=== PATIENT | male | born 1945 | race Caucasian/White ===

== ENCOUNTER 2017-11-06 19:36 | Emergency (ER) | payer OTHER ==
[2017-11-06] MEDS ORDERED: ONDANSETRON 4 MG/2 ML VIAL ONE (20:26)
[2017-11-06] MEDS ORDERED: MORPHINE 4 MG/ML SYR ONE (20:26)
[2017-11-06] MEDS ORDERED: NA CHLORIDE 0.9% 1,000 ML ONE (20:26)
[2017-11-06 20:36] LABS: Protime INR 1.05
[2017-11-06 20:42] LABS: Absolute Lymphocytes (CBC) 0.6 K/uL (0.7-4.9); Absolute Neutrophil 6.7 K/uL (1.8-8.0); Basophils % 0.2 % (0-1.3); Eosinophils % 1.9 % (0-4.4); Hematocrit 44.7 % (39.6-49.0); Lymphocytes % 7.5 % (15.3-44.8); MCH 31.5 pg (27.0-35.0); MCV 92.7 fL (80-100); MPV 8.9 fL (7.6-11.3); Monocytes % 12.3 % (3.3-12.3); RBC Red Blood Cell Count 4.82 M/uL (4.33-5.43)
--- NOTE | 2017-11-06 20:44 | RAD REPORT ---
EXAM DESCRIPTION: RAD - Chest Single View - 11/06/2017 8:33 pm CLINICAL HISTORY: Chest pain. COMPARISON: 06/25/2017 FINDINGS: Portable technique limits examination quality. Underinflated left lung is seen with small left pleural effusion. Prominent left suprahilar markings are noted. Previously noted large left lung mass appears significantly reduced in size. The right flora g is grossly clear. The heart is upper limit normal in size. No displaced fractures.
[2017-11-06 20:47] LABS: Potassium 4.3 mEq/L (3.6-5.0)
[2017-11-06 20:54] LABS: Albumin 3.9 g/dL (3.2-5.5); Bilirubin Direct 0.1 mg/dL (0-0.2); Bilirubin Total 0.8 mg/dL (0.3-1.2); Magnesium 1.8 mg/dL (1.8-2.5); Protein, Total 7.6 g/dL (6.0-8.3)
[2017-11-06 20:58] LABS: CKMB Creatine Kinase MB 1.8 ng/ml (0.3-4.0)
--- NOTE | 2017-11-06 21:46 | RAD REPORT ---
EXAM DESCRIPTION: CT - Chest For Pe Angio - 11/06/2017 9:33 pm CLINICAL HISTORY: Chest pain. History of lung carcinoma. COMPARISON: 06/24/2017 TECHNIQUE: CT angiogram of the pulmonary arteries was performed with MIP. All CT scans are performed using dose optimization technique as appropriate and may include automated exposure control or mA/KV adjustment according to patient size. FINDINGS: No evidence of pulmonary thromboembolism. No acute aortic finding demonstrated. There has been marked improvement in the large soft tissue mass in the region of the AP window since the comparative study. Little if any residual mass is present in the region. Ill-defined right upper lobe medial lung opacity emanating from the left suprahilar region persists, however is markedly dimi nished in size compared to the prior study. Post radiation changes are suspected in the left anterome dial upper lobe. Mild linear subsegmental atelectasis is seen in both posterior lung bases. The lungs are diffusely emphysematous. No significant pericardial or pleural fluid. No lytic or blastic bone lesion. IMPRESSION: No evidence of pulmonary thromboembolism. Marked improvement in left upper lobe neoplastic process the comparative study.
[2017-11-06 21:52] LABS: Platelet Estimate DECR; Urine White Blood Cell Casts OK
[2017-11-06 21:53] LABS: Anisocytosis 1+; Blood Morphology Comment NOTED (NOT SEEN)
--- NOTE | 2017-11-06 22:29 | ER ---
Nurse's Notes [facility] Name: Fred Mayorga Age: 72 yrs Sex: Male : 1945 Arrival Date: 11/06/2017 Time: 19:38 Bed 14 Private MD: Rome Solorio Diagnosis: Chest pain on breathing Presentation: 11/06 19:43 Presenting complaint: Patient states: Chest pain and SOB that started today. Patient aj had radiation [place] on Tuesday for lung cancer. Transition of care: patient was not received from another setting of care. Onset of symptoms was November 06, 2017. Initial Sepsis Screen: Does the patient meet any 2 criteria? No. Patient's initial sepsis screen is negative. Does the patient have a suspected source of infection? No. Patient's initial sepsis screen is negative. Care prior to arrival: None. 19:43 Method Of Arrival: Wheelchair aj 19:43 Acuity: ADITYA 3 aj Triage Assessment: 19:46 General: Appears in no apparent distress. comfortable, Behavior is calm, cooperative, aj appropriate for age. Pain: Complains of pain in chest. Neuro: Level of Consciousness is awake, alert, obeys commands, Oriented to person, place, time, situation, Appropriate for age. Cardiovascular: Reports chest pain. Respiratory: Airway is patent Respiratory effort is even, unlabored, Respiratory pattern is regular, symmetrical. Derm: Skin is intact, is healthy with good turgor, Skin is pink, warm \T\ dry. normal. Historical: - Allergies: 19:46 No Known Allergies; aj - Home Meds: 19:46 Tramadol Oral [Active]; unknown cholesterol med [Active]; aj - PMHx: 19:46 Lung Cancer; Hyperlipidemia; aj - PSHx: 19:46 None; aj - Immunization history:: Adult Immunizations up to date. - Social history:: Smoking status: Patient/guardian denies using tobacco, Patient/guardian denies using alcohol, street drugs, The patient lives with family. - Family history:: not pertinent. Screenin:27 Abuse screen: Denies threats or abuse. Denies injuries from another. Nutritional bs1 screening: No deficits noted. Tuberculosis screening: No symptoms or risk factors identified. Fall Risk None identified. Assessment: 20:15 General: Appears uncomfortable, Behavior is cooperative, anxious. Pain: Complains of bs1 pain in mid-sternal area and chest Pain does not radiate. Pain began gradually. Neuro: Level of Consciousness is awake, alert, obeys commands, Hard of hearing. Oriented to person, place, time, situation, Appropriate for age Nurse Orthopaedic are equal bilaterally. Cardiovascular: Reports chest pain, nausea, shortness of breath, Denies lightheadedness, palpitations, Heart tones S1 S2 present Capillary refill < 3 seconds Patient's skin is warm and dry. Rhythm is regular. Respiratory: Reports shortness of breath at rest on exertion cough that is non-productive, Airway is patent Trachea midline Respiratory effort is even, unlabored, Respiratory pattern is regular, symmetrical, Breath sounds are clear bilaterally. GI: Abdomen is round umbilical hernia noted. GI: Bowel sounds present X 4 quads. Abd is non tender X 4 quads Reports nausea. : Reports incontinence. EENT: Throat is reddened Reports pain when swallowing. Derm: Skin is intact. Musculoskeletal: Circulation, motion, and sensation intact. Capillary refill is > 3 seconds, fingers. bilateral fingers/hands purple/discolored. Range of motion: intact in all extremities. 21:30 Reassessment: Patient appears in no apparent distress at this time. No changes from bs1 previously documented assessment. Patient and/or family updated on plan of care and expected duration. Pain level reassessed. 22:45 Reassessment: Patient appears in no apparent distress at this time. Patient and/or bs1 family updated on plan of care and expected duration. Pain level reassessed. Patient is alert, oriented x 3, equal unlabored respirations, skin warm/dry/pink. Patient states symptoms have improved. Vital Signs: 19:46 BP 139 / 75; Pulse 78; Resp 17; Temp 99.6; Pulse Ox 97% on R/A; Weight 115.67 kg; aj Height 5 ft. 8 in. (172.72 cm); Pain 10/10; 21:00 BP 146 / 69; Pulse 87; Resp 21; Pulse Ox 98% on 2 lpm NC; Pain 6/10; bs1 22:00 BP 146 / 84; Pulse 91; Resp 21; Pulse Ox 95% on 2 lpm NC; Pain 5/10; bs1 22:45 BP 145 / 80; Pulse 88; Resp 20; Temp 97.9(O); Pulse Ox 99% on R/A; Pain 3/10; bs1 19:46 Body Mass Index 38.77 (115.67 kg, 172.72 cm) aj ED Course: 19:38 Patient arrived in ED. al2 19:39 Rome Solorio DO is Private Physician. al2 19:44 Triage completed. aj 19:46 Arm band placed on left wrist. Patient placed in an exam room. aj 19:47 Opal Aguirre MD is Attending Physician. ma2 20:06 Monik Peralta, LIZ is Primary Nurse. bs1 20:15 Inserted saline lock: 20 gauge in right antecubital area, using aseptic technique. bs1 20:15 Oxygen administration via nasal cannula \T\ 2L/min. bs1 20:24 Radiology exam delayed due to lab results not completed at this time. (BUN/Creatinine). vr 20:32 X-ray completed. Portable x-ray completed in exam room. Patient tolerated procedure la2 well. 20:33 XRAY Chest (1 view) In Process Unspecified. EDMS 20:45 Patient has correct armband on for positive identification. Placed in gown. Bed in low bs1 position. Call light in reach. Side rails up X 1. Adult w/ patient. clinical research monitor on. Pulse ox on. NIBP on. Warm blanket given. 21:27 No provider procedures requiring assistance completed. bs1 21:32 CT completed. Patient moved to CT via stretcher. Patient moved back from CT. vr 21:33 CT Chest For PE Angio In Process Unspecified. EDMS 23:01 IV discontinued, bleeding controlled, No redness/swelling at site. Pressure dressing bs1 applied. Administered Medications: 20:30 Drug: Zofran 4 mg Route: IVP; Site: right antecubital; bs1 21:31 Follow up: Response: No adverse reaction bs1 20:33 Drug: NS 0.9% 1000 ml Route: IV; Rate: 1 bolus; Site: right antecubital; bs1 21:30 Follow up: IV Status: Completed infusion bs1 20:33 Drug: morphine 4 mg Route: IVP; Site: right antecubital; bs1 21:30 Follow up: Response: No adverse reaction bs1 Outcome: 22:28 Discharge ordered by . ma2 22:59 Discharged to home via wheelchair, with family. bs1 22:59 Condition: stable 22:59 Discharge instructions given to patient, Instructed on discharge instructions, follow up and referral plans. Demonstrated understanding of instructions, follow-up care, Prescriptions given X patient refused tylenol #3 w/ codeine. 23:01 Patient left the ED. bs1 Signatures: Dispatcher [employer] EDGauri Humphrey RN RN aj Davis, Victoria vr Ardoin, Leslie la2 Salazar, Brittany, RN RN bs1 Nessa Bolanos Mohammad, MD MD ny2
--- NOTE | 2017-11-06 22:29 | EDPHYS ---
Physician Documentation [facility] Name: Fred Mayorga Age: 72 yrs Sex: Male : 1945 Arrival Date: 11/06/2017 Time: 19:38 Bed 14 Private MD: Osmin [facility] ED Physician Opal Aguirre HPI: 11/06 20:15 This 72 yrs old Male presents to ER via Wheelchair with complaints of Chest ma2 Pain. 20:15 The patient or guardian reports chest pain that is located primarily in the substernal ma2 area, mid-sternal area. Onset: gradually, 2 day(s) ago. The pain does not radiate. Associated signs and symptoms: Pertinent positives: dizziness, nausea, shortness of breath, Pertinent negatives: cough, lower extremity swelling, near syncope. The chest pain is described as a pressure. Duration: The patient or guardian reports multiple episodes. Severity of pain: At its worst the pain was severe in the emergency department the pain is unchanged. The patient has not experienced similar symptoms in the past. Historical: - Allergies: 19:46 No Known Allergies; aj - Home Meds: 19:46 Tramadol Oral [Active]; unknown cholesterol med [Active]; aj - PMHx: 19:46 Lung Cancer; Hyperlipidemia; aj - PSHx: 19:46 None; aj - Immunization history:: Adult Immunizations up to date. - Social history:: Smoking status: Patient/guardian denies using tobacco, Patient/guardian denies using alcohol, street drugs, The patient lives with family. - Family history:: not pertinent. ROS: 20:15 Constitutional: Negative for fever, chills, and weight loss. ma2 20:15 Cardiovascular: Positive for chest pain, Negative for edema, orthopnea. 20:15 All other systems are negative. Exam: 20:15 Constitutional: This is a well developed, well nourished patient who is awake, alert, ma2 and in no acute distress. Head/Face: Normocephalic, atraumatic. Chest/axilla: Normal chest wall appearance and motion. Nontender with no deformity. No lesions are appreciated. Cardiovascular: Regular rate and rhythm with a normal S1 and S2. No gallops, murmurs, or rubs. Normal PMI, no JVD. No pulse deficits. Respiratory: Lungs have equal breath sounds bilaterally, clear to auscultation and percussion. No rales, rhonchi or wheezes noted. No increased work of breathing, no retractions or nasal flaring. Abdomen/GI: Soft, non-tender, with normal bowel sounds. No distension or tympany. No guarding or rebound. No evidence of tenderness throughout. MS/ Extremity: Pulses equal, no cyanosis. Neurovascular intact. Full, normal range of motion. Psych: Awake, alert, with orientation to person, place and time. Behavior, mood, and affect are within normal limits. Vital Signs: 19:46 BP 139 / 75; Pulse 78; Resp 17; Temp 99.6; Pulse Ox 97% on R/A; Weight 115.67 kg; aj Height 5 ft. 8 in. (172.72 cm); Pain 10/10; 21:00 BP 146 / 69; Pulse 87; Resp 21; Pulse Ox 98% on 2 lpm NC; Pain 6/10; bs1 22:00 BP 146 / 84; Pulse 91; Resp 21; Pulse Ox 95% on 2 lpm NC; Pain 5/10; bs1 22:45 BP 145 / 80; Pulse 88; Resp 20; Temp 97.9(O); Pulse Ox 99% on R/A; Pain 3/10; bs1 19:46 Body Mass Index 38.77 (115.67 kg, 172.72 cm) aj MDM: 19:47 Patient medically screened. ma2 20:15 Differential diagnosis: pulmonary embolus. ma2 20:15 Differential diagnosis: gastroesophageal reflux disease (GERD), pericarditis, pleurisy, ma2 pneumonia, pneumothorax, thoracic aortic disection, hx of lung ca has getting radiation therapy last session was 2 days ago here with 2 days of constant gradual pain that is worse with deep breath never had cardiac problems had normal stress test few years ago. 22:26 HEART Score: History: Slightly Suspicious (0), ECG: Normal (0), Age: Risk Factors: No ma2 Risk Factors Known (0), Troponin: < or = 1 x Normal Limit (0), Total Score =. The patient was not given aspirin in the Emergency Department. The patient's pulmonary embolism risk score was calculated as follows: No Risks (0 Pts) alternative diagnosis is less likely (3 Pts) malignancy. Data reviewed: vital signs, nurses notes, EKG, radiologic studies, CT scan. Counseling: I had a detailed discussion with the patient and/or guardian regarding: the historical points, exam findings, and any diagnostic results supporting the discharge/admit diagnosis, the presence of at least one elevated blood pressure reading (>120/80) during this emergency department visit, the need for outpatient follow up. ED course: pain improved unlikely ACS he will f/u with pcp tomorrow, . 11/06 19:48 Order name: Basic Metabolic Panel; Complete Time: 21:27 ma2 11/06 19:48 Order name: BNP; Complete Time: 21:27 ma2 11/06 19:48 Order name: CBC with Diff; Complete Time: 22:26 ma2 11/06 19:48 Order name: Ckmb; Complete Time: 21:27 ma2 11/06 19:48 Order name: CPK; Complete Time: 21:27 ma2 11/06 19:48 Order name: LFT's; Complete Time: 21:27 ma2 11/06 19:48 Order name: Magnesium; Complete Time: 21:27 ma2 11/06 19:48 Order name: PT-INR; Complete Time: 21:27 ma2 11/06 19:48 Order name: Ptt, Activated; Complete Time: 21:27 ma2 11/06 19:48 Order name: Troponin (emerg Dept Use Only); Complete Time: 21:28 ma2 11/06 19:48 Order name: XRAY Chest (1 view); Complete Time: 21:28 ma2 11/06 20:15 Order name: CT Chest For PE Angio; Complete Time: 22: ma2 11/06 21:52 Order name: CBC Smear Scan; Complete Time: 22:26 EDOR 11/06 22:02 Order name: Urine Dipstick--Ancillary (enter results) em1 11/06 19:48 Order name: EKG; Complete Time: 19:49 ma2 11/06 19:48 Order name: Cardiac monitoring; Complete Time: 20:35 ma2 11/06 19:48 Order name: EKG - Nurse/Tech; Complete Time: 20:35 ma2 11/06 19:48 Order name: IV Saline Lock; Complete Time: 20:35 ma2 11/06 19:48 Order name: Labs collected and sent; Complete Time: 20:36 sd2 11/06 19:48 Order name: O2 Per Protocol; Complete Time: 20:36 ma2 11/06 19:48 Order name: O2 Sat Monitoring; Complete Time: 20:36 sd2 11/06 19:48 Order name: Urine Dipstick-Ancillary (obtain specimen); Complete Time: 21:59 ma2 Administered Medications: 20:30 Drug: Zofran 4 mg Route: IVP; Site: right antecubital; bs1 21:31 Follow up: Response: No adverse reaction bs1 20:33 Drug: NS 0.9% 1000 ml Route: IV; Rate: 1 bolus; Site: right antecubital; bs1 21:30 Follow up: IV Status: Completed infusion bs1 20:33 Drug: morphine 4 mg Route: IVP; Site: right antecubital; bs1 21:30 Follow up: Response: No adverse reaction bs1 Disposition: 11/06/17 22:28 Discharged to Home. Impression: Chest pain on breathing. - Condition is Stable. - Discharge Instructions: Nonspecific Chest Pain. - Prescriptions for Tylenol- Codeine #3 300-30 mg Oral Tablet - take 2 tablet by ORAL route every 6 hours As needed; 30 tablet. - Medication Reconciliation Form, Thank You Letter, Antibiotic Education, Prescription Opioid Use form. - Follow up: Private Physician; When: Tomorrow; Reason: Continuance of care. - Problem is new. - Symptoms have improved. Signatures: Dispatcher [employer] Gauri Johnson RN RN aj Salazar, Brittany, RN RN bs1 Opal Aguirre MD MD ma2 Corrections: (The following items were deleted from the chart) 23:01 22:28 11/06/2017 22:28 Discharged to Home. Impression: Chest pain on breathing. bs1 Condition is Stable. Forms are Medication Reconciliation Form, Thank You Letter, Antibiotic Education, Prescription Opioid Use. Follow up: Private Physician; When: Tomorrow; Reason: Continuance of care. Problem is new. Symptoms have improved. ma2
[2017-11-06 22:34] LABS: Urine Blood NEGATIVE (NEG); Urine Glucose NEGATIVE (NEG); Urine Protein NEGATIVE (NEG); Urine Specific Gravity 1.015 (1.005-1.030); Urine pH 5.5 (5.0-7.0)
[2017-11-06 23:29] VITALS: BP 145/80; TEMP 97.9; O2SAT 99
--- NOTE | 2017-11-07 06:54 | EKG ---
Test Date: 2017-11-06 Test Time: 19:57:37 Blintze Roller: NATHALIE MEASUREMENT RESULTS: Intervals: Rate: 78 IA: 124 QRSD: 86 QT: 360 QTc: 410 [place]: P: 92 IA: 124 QRS: -4 T: 36 INTERPRETIVE STATEMENTS: Normal sinus rhythm Normal ECG Compared to ECG 06/24/2017 18:57:24 No significant changes Electronically Signed On 11-07-17 06:53:41 CDT by Juan Luis Garcia
== END 2017-11-06 23:01 | disposition home or self-care (01) ==
LOC: ER 19:36
DX: R07.1 Chest pain on breathing (principal); E78.5 Hyperlipidemia, unspecified; Z85.118 Personal history of other malignant neoplasm of bronchus and lung
CPT/HCPCS: 36415; 71045; 71275; 80048; 80076; 81003; 82550; 82553; 83735; 83880; 84484; 85025; 85610; 85730; 93005; J2405; J7030; Q9967; 96361; 96374; 96375; 99285

== ENCOUNTER 2017-11-10 21:09 | Emergency (ER) | payer OTHER ==
[2017-11-10] MEDS ORDERED: LIDOCAINE 100 MG/5 ML SYRINGE IV ONE (22:08)
[2017-11-10] MEDS ORDERED: LIDOCAINE 2% MPF 5 ML VIAL ONE (22:10)
--- NOTE | 2017-11-10 23:17 | ER ---
Nurse's Notes [facility] Name: Fred Mayorga Age: 72 yrs Sex: Male : 1945 Arrival Date: 11/10/2017 Time: 21:13 Bed 23 Private MD: Diagnosis: Left Infranasal Laceration Presentation: 11/10 21:19 Presenting complaint: Patient states: Reports being hit directly below left nostril 1 aj hour [employer] by flying debris when using a table saw. Small laceration noted in triage, under left nostril. Transition of care: patient was not received from another setting of care. Complicating Factors: There are no complicating factors for this patient. Onset of symptoms was November 10, 2017. Initial Sepsis Screen: Does the patient meet any 2 criteria? No. Patient's initial sepsis screen is negative. Does the patient have a suspected source of infection? No. Patient's initial sepsis screen is negative. Care prior to arrival: None. 21:19 Method Of Arrival: Ambulatory aj 21:19 Acuity: ADITYA 4 aj Triage Assessment: 21:20 General: Appears in no apparent distress. comfortable, Behavior is calm, cooperative, aj appropriate for age. Pain: Denies pain. Neuro: Level of Consciousness is awake, alert, obeys commands, Oriented to person, place, time, situation, Appropriate for age. Respiratory: Airway is patent Respiratory effort is even, unlabored, Respiratory pattern is regular, symmetrical. Derm: Skin is intact, is healthy with good turgor, Skin is pink, warm \T\ dry. normal. Injury Description: Laceration sustained to left nostril. Historical: - Allergies: 21:20 No Known Allergies; aj - Home Meds: 21:20 Tramadol Oral [Active]; Unknown cholesterol med [Active]; aj - PMHx: 21:20 Hyperlipidemia; Lung Cancer; aj - PSHx: 21:20 None; aj - Immunization history:: Last tetanus immunization: unknown. - Social history:: Smoking status: Patient/guardian denies using tobacco. Screenin:00 Abuse screen: Denies threats or abuse. Denies injuries from another. Nutritional kr2 screening: No deficits noted. Tuberculosis screening: No symptoms or risk factors identified. Fall Risk Gait- Impaired (20 pts.). Assessment: 22:30 General: Appears in no apparent distress. comfortable, well groomed, well developed, kr2 well nourished, Behavior is calm, cooperative. Pain: Complains of pain in left nostril Pain does not radiate. Pain currently is 2 out of 10 on a pain scale. Quality of pain is described as burning, tender, Pain began suddenly, Is continuous. Neuro: Level of Consciousness is awake, alert, obeys commands, Oriented to person, place, time, situation. Cardiovascular: Capillary refill < 3 seconds in bilateral fingers Patient's skin is warm and dry. Respiratory: Airway is patent Respiratory effort is even, unlabored, Respiratory pattern is regular, symmetrical. EENT: Oral mucosa is moist. Musculoskeletal: Circulation, motion, and sensation intact. Range of motion: intact in all extremities. Injury Description: Laceration sustained to left infranasal is clean, 0.5 to 2.5 cm long, is bleeding a small amount. 22:45 Reassessment: Patient appears in no apparent distress at this time. Patient and/or kr2 family updated on plan of care and expected duration. Pain level reassessed. Patient is alert, oriented x 3, equal unlabored respirations, skin warm/dry/pink. Area around laceration shaved with surgical clippers. Laceration cleansed with chlorhexidine and irrigated with saline. Patient tolerated well. 23:35 Reassessment: Patient appears in no apparent distress at this time. Patient and/or kr2 family updated on plan of care and expected duration. Pain level reassessed. Patient is alert, oriented x 3, equal unlabored respirations, skin warm/dry/pink. Cleansed laceration with NS and dried. Sutures in place. Patient denies pain at this time. Vital Signs: 21:20 BP 138 / 78; Pulse 94; Resp 16; Temp 98.6; Pulse Ox 95% on R/A; Weight 115.67 kg; aj Height 5 ft. 8 in. (172.72 cm); Pain 0/10; 22:30 BP 136 / 78; Pulse 90; Resp 17; Pulse Ox 100% on R/A; kr2 21:20 Body Mass Index 38.77 (115.67 kg, 172.72 cm) aj ED Course: 21:13 Patient arrived in ED. al2 21:20 Triage completed. aj 21:20 Arm band placed on left wrist. Patient placed in an exam room. aj 21:23 Alisia Caceres, RN is Primary Nurse. kr2 21:42 Michael Rodriguez PA is PHCP. van 21:42 Fredrick Melendrez MD is Attending Physician. cp 22:00 Patient has correct armband on for positive identification. Bed in low position. Call kr2 light in reach. Side rails up X2. Adult w/ patient. Pulse ox on. NIBP on. Door closed. Warm blanket given. Head of bed elevated. 23:30 No provider procedures requiring assistance completed. Patient did not have IV access kr2 during this emergency room visit. Administered Medications: No medications were administered Outcome: 23:17 Discharge ordered by MD. cp 23:30 Discharged to home ambulatory, with family. kr2 23:30 Condition: good 23:30 Discharge instructions given to patient, family, Instructed on discharge instructions, follow up and referral plans. wound care, Demonstrated understanding of instructions, follow-up care, wound care. 23:55 Patient left the ED. kr2 Signatures: Gauri Benavidez RN RN aj Page, Corey, PA PA cp Reaves, Karey, LIZ RN kr2 Nessa Bolanos Corrections: (The following items were deleted from the chart) 11/11 00:09 05 23:00 Reassessment: Patient appears in no apparent distress at this time. Patient kr2 and/or family updated on plan of care and expected duration. Pain level reassessed. Patient is alert, oriented x 3, equal unlabored respirations, skin warm/dry/pink. Area around laceration shaved with surgical clippers. Laceration cleansed with chlorhexidine and irrigated with saline. Patient tolerated well kr2
--- NOTE | 2017-11-10 23:17 | EDPHYS ---
Physician Documentation [facility] Name: Fred Mayorga Age: 72 yrs Sex: Male : 1945 Arrival Date: 11/10/2017 Time: 21:13 Bed 23 Private MD: ED Physician Fredrick Melendrez HPI: 11/10 21:50 This 72 yrs old Male presents to ER via Ambulatory with complaints of cp Laceration To Scalp/Face. 21:50 The patient has a laceration related to: doing crafts, occurred at home, and there are cp no complicating factors. The laceration(s) is(are) located on the left intranasal area of face. Onset: The symptoms/episode began/occurred just prior to arrival. 21:50 Associated signs and symptoms: Pertinent negatives: heavy bleeding, loss of cp consciousness, numbness distal to injury, suspected foreign body. Patient reports he was performing woodwork when piece of wood accidently struck face. No reported LOC. Historical: - Allergies: 21:20 No Known Allergies; - Home Meds: 21:20 Tramadol Oral [Active]; Unknown cholesterol med [Active]; aj - PMHx: 21:20 Hyperlipidemia; Lung Cancer; aj - PSHx: 21:20 None; aj - Immunization history:: Last tetanus immunization: unknown. - Social history:: Smoking status: Patient/guardian denies using tobacco. ROS: 22:00 Constitutional: Negative for fever. cp 22:00 Skin: Positive for laceration(s), of the left infranasal area, Negative for cellulitis. cp 22:00 Neuro: Negative for headache, loss of consciousness. 22:00 All other systems are negative. Exam: 22:05 Constitutional: The patient appears in no acute distress, alert, awake, cp non-diaphoretic, non-toxic, well developed, well nourished. 22:05 Head/face: Noted is a laceration(s), that is deep, that is linear, 2 cm(s), of the cp left infranasal area of face, Sinus tenderness, is not appreciated. 22:05 Eyes: Periorbital structures: appear normal, Conjunctiva: normal, no exudate, no injection, Lids and lashes: appear normal, bilaterally. 22:05 ENT: External ear(s): are unremarkable, Ear canal(s): are normal, clear, TM's: dullness, bilaterally, Mouth: Lips: moist, Oral mucosa: pink and intact, moist, Gums: normal with healthy appearance, Tongue: is normal, Posterior pharynx: Airway: no evidence of obstruction, patent, Uvula: midline, swelling, is not appreciated, erythema, is not appreciated, exudate, is not appreciated, Dental exam: no acute changes. 22:05 Neck: C-spine: vertebral tenderness, is not appreciated, crepitus, is not appreciated, ROM/movement: is normal, is supple, without pain, no range of motions limitations, no nuchal rigidity. 22:05 Chest/axilla: Inspection: normal, Palpation: is normal, no crepitus, no tenderness. 22:05 Cardiovascular: Rate: normal. 22:05 Respiratory: the patient does not display signs of respiratory distress, Respirations: normal, no use of accessory muscles, no retractions, no splinting, no tachypnea. 22:05 Abdomen/GI: Exam negative for discomfort, distension, guarding, Inspection: abdomen appears normal. 22:05 Neuro: Orientation: to person, place \T\ time. Mentation: lucid, able to follow commands, Cerebellar function: is grossly normal, Motor: moves all fours, strength is normal, Sensation: no obvious gross deficits. Vital Signs: 21:20 BP 138 / 78; Pulse 94; Resp 16; Temp 98.6; Pulse Ox 95% on R/A; Weight 115.67 kg; aj Height 5 ft. 8 in. (172.72 cm); Pain 0/10; 22:30 BP 136 / 78; Pulse 90; Resp 17; Pulse Ox 100% on R/A; kr2 21:20 Body Mass Index 38.77 (115.67 kg, 172.72 cm) aj Laceration: 23:07 Wound Repair of 2cm ( 0.8in ) subcutaneous laceration to left side nasal area and above cp lip. Linear shaped.. Distal neuro/vascular/tendon intact. Anesthesia: Local anesthetic administered with 4 mls of 2% lidocaine. Wound prep: Moderate cleansing by nurse. Skin closed with 4 6-0 Prolene using simple sutures and sterile technique. Dressed with Bacitracin. Patient tolerated well. MDM: 21:43 Patient medically screened. cp 23:15 Data reviewed: vital signs, nurses notes, and as a result, I will discharge patient. cp 23:15 Counseling: I had a detailed discussion with the patient and/or guardian regarding: the cp historical points, exam findings, and any diagnostic results supporting the discharge/admit diagnosis, the need for outpatient follow up, a family practitioner, to return to the emergency department if symptoms worsen or persist or if there are any questions or concerns that arise at home. Response to treatment: the patient's symptoms have markedly improved after treatment, and as a result, I will discharge patient. ED course: VSS. Patient reports tetanus immunization UTD and that he is currently taking antibiotic for tooth infection. 11/10 21:53 Order name: Prolene, Sutures; Complete Time: 23:05 cp 11/10 21:53 Order name: Dressing - Wound; Complete Time: 23:05 cp 11/10 21:53 Order name: Gloves, Sterile; Complete Time: 22:10 cp 11/10 21:53 Order name: Setup Suture Tray; Complete Time: 22:09 cp 11/10 21:53 Order name: Wound Care: please clean and irrigate wound; Complete Time: 22:06 cp 11/10 23:07 Order name: Wound dressing; Complete Time: 23:20 cp Administered Medications: No medications were administered Disposition: 11/11 01:00 Chart complete. cp 04:47 Co-signature as Attending Physician, Fredrick Melendrez MD. rn Disposition: 11/10/17 23:17 Discharged to Home. Impression: Left Infranasal Laceration. - Condition is Stable. - Discharge Instructions: Facial Laceration. - Medication Reconciliation Form, Thank You Letter, Antibiotic Education, Prescription Opioid Use form. - Follow up: Private Physician; When: 1 week; Reason: Staple/Suture removal. - Problem is new. - Symptoms have improved. Signatures: Gauri Benavidez RN RN Fredrick Kent MD MD rn Page, Corey, PA PA cp Reaves, Karey, RN RN kr2 Corrections: (The following items were deleted from the chart) 11/10 23:55 23:17 11/10/2017 23:17 Discharged to Home. Impression: Left Infranasal Laceration. kr2 Condition is Stable. Forms are Medication Reconciliation Form, Thank You Letter, Antibiotic Education, Prescription Opioid Use. Follow up: Private Physician; When: 1 week; Reason: Staple/Suture removal. Problem is new. Symptoms have improved. cp
[2017-11-10 23:59] VITALS: BP 138/78; TEMP 98.6; O2SAT 95
== END 2017-11-10 23:55 | disposition home or self-care (01) ==
LOC: ER 21:09
PROC: 0CQ0XZZ Repair Upper Lip, External Approach (ICD-10-PCS; principal; 2017-11-10)
PROC: 09QKXZZ Repair Nasal Mucosa and Soft Tissue, External Approach (ICD-10-PCS; 2017-11-10)
DX: S01.21XA Laceration without foreign body of nose, initial encounter (principal); W45.8XXA Other foreign body or object entering through skin, initial encounter; W29.8XXA Contact with other powered hand tools and household machinery, initial encounter; Y93.89 Activity, other specified; Y92.9 Unspecified place or not applicable
CPT/HCPCS: 99283

== ENCOUNTER 2018-12-05 16:49 | Emergency (ER) | payer OTHER ==
--- OUTSIDE RECORDS SUMMARY | 2018-12-05 16:51 | XMS REPORT ---
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
--- OUTSIDE RECORDS SUMMARY | 2018-12-05 16:51 | XMS REPORT ---
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 Problem Benign essential HTN I10 Active Problem Vitamin D deficiency E55.9 Active Problem Shortness of breath R06.02 Active Problem Hyperlipidemia, mixed E78.2 Active Problem Non-small cell lung cancer (NSCLC) C34.90 Active Problem Dyspnea R06.00 Active Problem Former smoker Z87.891 Active Assessment Adverse effect of antineoplastic T45.1X5D Active and immunosuppressive drugs, subsequent encounter Assessment Vitamin D deficiency E55.9 Active Assessment Benign essential HTN I10 Active Assessment Dyspnea R06.00 Active Assessment Hyperlipidemia, mixed E78.2 Active Assessment Former smoker Z87.891 Active Assessment 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 Medications Medication Code Code Instructions Start End Date Status Dosage System Date Lyrica [facility] 83922025240 100 MG Orally Active 1 capsule Twice a day Ventolin HFA [facility] 18639272807 90 MCG/ACT Active 2 puffs as Inhalation every needed 6 hrs Lisinopril [facility] 85832649229 10 MG Orally Active 1 tablet Once a day Norvasc [facility] 82645537834 10 MG Orally Active 1 tablet Once a day Symbicort [facility] 48484027903 80-4.5 MCG/ACT Active 2 puffs Inhalation Twice a day Simvastatin ND 57671995098 40 MG Orally Active 1 tablet Once a day in the evening Lyrica [facility] 95842825319 150 MG Orally January 17, Active 1 capsule twice a day 2018 Aspir-81 [facility] 17220625979 81 MG Orally Active 1 tablet Once a day Results No Known Results Summary Purpose eClinicalWorks Submission
--- OUTSIDE RECORDS SUMMARY | 2018-12-05 16:51 | XMS REPORT ---
:1945 Author Organization [employer] Care Team Providers Name Role Phone Chong Solorioh Provider Role Unavailable Allergies, Adverse Reactions, Alerts Substance Reaction Event Type N.K.D.A. 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 Problem Benign essential HTN I10 Active Problem Vitamin D deficiency E55.9 Active Problem Shortness of breath R06.02 Active Problem Hyperlipidemia, mixed E78.2 Active Problem Non-small cell lung cancer (NSCLC) C34.90 Active Problem Dyspnea R06.00 Active Problem Former smoker Z87.891 Active Assessment Adverse effect of antineoplastic T45.1X5D Active and immunosuppressive drugs, subsequent encounter Assessment Benign essential HTN I10 Active Assessment Hyperlipidemia, mixed E78.2 Active Assessment Former smoker Z87.891 Active Assessment 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 Assessment Vitamin D deficiency E55.9 Active Assessment Non-small cell lung cancer (NSCLC) C34.90 Active Medications Medication Code Code Instructions Start End Status Dosage System Date Date Lisinopril [facility] 99654681836 10 MG Orally Active 1 tablet Once a day Lyrica [facility] 45351855861 100 MG Orally Active 1 capsule Twice a day Ventolin HFA [facility] 27870261589 90 MCG/ACT Active 2 puffs as Inhalation needed every 6 hrs Norvasc [facility] 39041914424 10 MG Orally Active 1 tablet Once a day Simvastatin [facility] 94114901675 40 MG Orally Active 1 tablet Once a day in the evening Amitriptyline HCl ND 34405469534 10 MG Orally January 25, Active 1 tablet Once a day 2018 at bedtime Lyrica [facility] 84614643776 150 MG Orally Active 1 capsule twice a day Symbicort [facility] 67982039196 80-4.5 MCG/ACT Active 2 puffs Inhalation Twice a day [facility] 76792504579 81 MG Orally Active 1 tablet Once a day Results No Known Results Summary Purpose eClinicalWorks Submission
--- OUTSIDE RECORDS SUMMARY | 2018-12-05 16:51 | XMS REPORT ---
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
--- OUTSIDE RECORDS SUMMARY | 2018-12-05 16:51 | XMS REPORT ---
:1945 [facility] Address [address] [place] [address] [address] [place] [address] Care Team Providers Name Role Phone Unavailable Unavailable Unavailable Problems This patient has no known problems. Allergies, Adverse Reactions, Alerts This patient has no known allergies or adverse reactions. Medications This patient has no known medications.
--- OUTSIDE RECORDS SUMMARY | 2018-12-05 16:51 | XMS REPORT ---
:1945 Author Organization eClinicalWorks Care Team Providers Name Role Phone Solorio [facility] Provider Role Unavailable Allergies No Known Allergies [...]
--- OUTSIDE RECORDS SUMMARY | 2018-12-05 16:51 | XMS REPORT ---
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 Assessment Facial laceration, subsequent S01.81XD Active encounter Problem Benign essential HTN I10 Active Problem Vitamin D deficiency E55.9 Active Problem Shortness of breath R06.02 Active Problem Hyperlipidemia, mixed E78.2 Active Problem Non-small cell lung cancer (NSCLC) C34.90 Active Problem Dyspnea R06.00 Active Problem Former smoker Z87.891 Active Medications Medication Code Code Instructions Start End Status Dosage System Date Date Lyrica [facility] 95892403526 100 MG Orally November 02, Active 1 capsule Twice a day 2017 Ventolin HFA [facility] 55304980750 90 MCG/ACT Active 2 puffs as Inhalation every needed 6 hrs Aspir-81 [facility] 14894638770 81 MG Orally Active 1 tablet Once a day Lisinopril [facility] 92352563123 10 MG Orally Active 1 tablet Once a day Simvastatin [facility] 19098148676 40 MG Orally Active 1 tablet Once a day in the evening Symbicort [facility] 63064906795 80-4.5 MCG/ACT Active 2 puffs Inhalation Twice a day Lyrica [facility] [address]-03 100 MG Orally Active 1 capsule Twice a day Norvasc [facility] 41333913625 10 MG Orally Active 1 tablet Once a day Results No Known Results Summary Purpose eClinicalWorks Submission
--- OUTSIDE RECORDS SUMMARY | 2018-12-05 16:51 | XMS REPORT ---
:1945 Author Organization eClinicalWorks Care Team Providers Name Role Phone SolorioRome Provider Role Unavailable Allergies No Known Allergies [...] Problem Benign essential HTN I10 Active Medications No Known Medications Results No Known Results Summary Purpose eClinicalWorks Submission
--- OUTSIDE RECORDS SUMMARY | 2018-12-05 16:51 | XMS REPORT ---
:1945 Author Organization eClinicalWorks Care Team Providers Name Role Phone SolorioRome Provider Role Unavailable Allergies, Adverse Reactions, Alerts [...] Active Problem Benign essential HTN I10 Active Assessment Vitamin D deficiency E55.9 Active Assessment Benign essential HTN I10 Active Assessment Adverse effect of antineoplastic T45.1X5D Active and immunosuppressive drugs, subsequent encounter Assessment Former smoker Z87.891 Active Assessment Non-small cell lung cancer (NSCLC) C34.90 Active Assessment Dyspnea R06.00 Active Assessment Hyperlipidemia, mixed E78.2 Active Assessment Medicare annual wellness visit, Z00.00 Active subsequent Assessment 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 Assessment Prostate cancer C61 Active Medications Medication Code Code Instructions Start End Status Dosage System Date Date Lyrica [facility] 65475449866 150 MG Orally Inactive 1 capsule twice a day Symbicort [facility] 60364690258 80-4.5 MCG/ACT Jul 15, Active 2 puffs Inhalation 2019 Twice a day Amitriptyline ND 45168791849 10 MG Orally January 25, Active 1 tablet HCl Once a day 2017 at bedtime Aspir-81 [facility] 32251693076 81 MG Orally Active 1 tablet Once a day Lisinopril ND 53446339218 10 MG Orally Inactive 1 tablet Once a day Norvasc [facility] 60954975396 10 MG Orally Inactive 1 tablet Once a day Ventolin HFA ND 36481359441 90 MCG/ACT Active 2 puffs Inhalation as needed every 6 hrs Simvastatin ND 01315131602 40 MG Orally Active 1 tablet Once a day in the evening Results No Known Results Summary Purpose eClinicalWorks Submission
--- OUTSIDE RECORDS SUMMARY | 2018-12-05 16:51 | XMS REPORT ---
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 Problem Benign essential HTN I10 Active Problem Vitamin D deficiency E55.9 Active Problem Shortness of breath R06.02 Active Problem Hyperlipidemia, mixed E78.2 Active Problem Non-small cell lung cancer (NSCLC) C34.90 Active Problem Dyspnea R06.00 Active Problem Former smoker Z87.891 Active Medications Medication Code Code Instructions Start End Status Dosage System Date Date Lyrica [facility] 99625350905 150 MG Orally January 17, Inactive 1 capsule twice a day 2017 Amitriptyline [facility] 52434978629 10 MG Orally January 25, Active 1 tablet HCl Once a day 2017 at bedtime Results No Known Results Summary Purpose [employer] Submission
--- OUTSIDE RECORDS SUMMARY | 2018-12-05 16:52 | XMS REPORT ---
:1945 Author Organization eClinicalWorks Care Team Providers Name Role Phone [place] Solorio Provider Role Unavailable Allergies, Adverse Reactions, Alerts Substance Reaction Event Type N.K.D.A. 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 Assessment Ear pain, left H92.02 Active Assessment Bilateral impacted cerumen H61.23 Active Problem Hyperlipidemia, mixed E78.2 Active Problem Non-small cell lung cancer (NSCLC) C34.90 Active Problem Prostate cancer C61 Active Problem Vitamin D deficiency E55.9 Active Problem Dyspnea R06.00 Active Problem Shortness of breath R06.02 Active Problem Benign essential HTN I10 Active Medications Medication Code Code Instructions Start End Status Dosage System Date Date Amitriptyline ND 62100833835 10 MG Orally January 25, Active 1 tablet at HCl Once a day 2018 bedtime Aspir-81 ND 53983894110 81 MG Orally Active 1 tablet Once a day Ventolin HFA ND 81959558386 90 MCG/ACT Active 2 puffs as Inhalation needed every 6 hrs Symbicort ND 55682334887 80-4.5 MCG/ACT Jul 15, Active 2 puffs Inhalation 2020 Twice a day Albuterol ND 65661146714 (2.5 MG/3ML) Jul 21, Active 3 ml as Sulfate 0.083% 2018 needed Inhalation Three times a day Debrox ND 13994809424 6.5 % Otic Aug 03, Aug 09, Active 5 drops Twice a day 2018 2018 into affected ear Simvastatin ND 58669882805 40 MG Orally Active 1 tablet in Once a day the evening Results No Known Results Summary Purpose eClinicalWorks Submission
[2018-12-05] MEDS ORDERED: KETOROLAC 30 MG/ML INJ ONE (18:41)
[2018-12-05] MEDS ORDERED: HYDROCODONE/APAP 10/325 TAB ONE (18:42)
--- NOTE | 2018-12-05 18:43 | EDPHYS ---
Physician Documentation [facility] Name: Fred Mayorga Age: 73 yrs Sex: Male : 1945 Arrival Date: 12/05/2018 Time: 16:53 Bed Treatment Private MD: Rome Solorio ED Physician Shahid Hurley HPI: 12/05 18:36 This 73 yrs old Male presents to ER via Wheelchair with complaints of Back ps1 Pain. 18:36 patient has a hx of lung CA and prostate CA. Recent MRI/ PET scan within a month with ps1 no mets. Patient states that he was bending over to wipe his backside a week ago and felt a muscle spasm. He states that his pain has persisted since then. He states that his pain is localized to his lower back bilaterally. No urinary complaints, fever, chills, or saddle anesthesia. Pt ambulated in the ED. . Historical: - Allergies: 17:07 No Known Allergies; tw2 - Home Meds: 17:07 Unknown cholesterol med [Active]; acetaminophen-codeine 300-30 mg Oral tab 1 tab every tw2 4 hours [Active]; - PMHx: 17:07 Lung Cancer; Hyperlipidemia; tw2 17:07 prostate cancer; tw2 - PSHx: 17:07 None; tw2 - Immunization history:: Adult Immunizations. - Social history:: Smoking status: Patient/guardian denies using tobacco, the patient reports quitting approximately 20 years ago. - Ebola Screening: : Patient denies travel to an Ebola-affected area in the 21 days before illness onset. ROS: 18:36 Constitutional: Negative for fever, chills, and weight loss, Eyes: Negative for injury, ps1 pain, redness, and discharge, ENT: Negative for injury, pain, and discharge, Cardiovascular: Negative for chest pain, palpitations, and edema, Respiratory: Negative for shortness of breath, cough, wheezing, and pleuritic chest pain, Abdomen/GI: Negative for abdominal pain, nausea, vomiting, diarrhea, and constipation, MS/Extremity: Negative for injury and deformity, Skin: Negative for injury, rash, and discoloration, Neuro: Negative for headache, weakness, numbness, tingling, and seizure. 18:36 Back: Positive for decreased range of motion, pain with movement, of the left low back and right low back. Exam: 18:36 Constitutional: This is a well developed, well nourished patient who is awake, alert, ps1 and in no acute distress. Head/Face: Normocephalic, atraumatic. Eyes: Pupils equal round and reactive to light, extra-ocular motions intact. Lids and lashes normal. Conjunctiva and sclera are non-icteric and not injected. Chest/axilla: Normal chest wall appearance and motion. Nontender with no deformity. No lesions are appreciated. Cardiovascular: Regular rate and rhythm. No gallops, murmurs, or rubs. Normal PMI, no JVD. No pulse deficits. Respiratory: Lungs have equal breath sounds bilaterally, clear to auscultation and percussion. No rales, rhonchi or wheezes noted. No increased work of breathing, no retractions or nasal flaring. Abdomen/GI: Soft, non-tender, with normal bowel sounds. No distension or tympany. No guarding or rebound. No evidence of tenderness throughout. Skin: Warm, dry with normal turgor. Normal color with no rashes, no lesions, and no evidence of cellulitis. MS/ Extremity: Pulses equal, no cyanosis. Neurovascular intact. Full, normal range of motion. 18:36 Back: pain, that is moderate, ROM is decreased, normal spinal alignment noted, vertebral tenderness, is not appreciated, muscle spasm, is appreciated in the left low back, left mid back, right mid back and right low back. Vital Signs: 17:04 BP 150 / 86; Pulse 53; Resp 18; Temp 98(TE); Pulse Ox 94% on R/A; Weight 124.74 kg (R); tw2 Height 5 ft. 9 in. (175.26 cm); Pain 10/10; 19:04 BP 140 / 78; Pulse 55; Resp 18; Temp 98; Pulse Ox 100% on R/A; Pain 5/10; mg2 17:04 Body Mass Index 40.61 (124.74 kg, 175.26 cm) tw2 17:04 "20" tw2 MDM: 18:36 Data reviewed: vital signs, nurses notes, and as a result, I will discharge patient. ED ps1 course: patient has paraspinal spasm with recent MRI, PET scan which was negative. Offered evaluation with CT scan, and refused. I additionally offered osteopathic manipulation therapy which he refused and said he would go to a chiropractor. Offered him a pain pill and anti-inflammatory. Patient agreed and discharged patient to follow up with MD Stanley for further evaluation. . 18:43 Patient medically screened. ps1 Administered Medications: 18:32 Drug: TORadol 30 mg Route: IM; Site: right gluteus; mg2 19:05 Follow up: Response: No adverse reaction; Medication administered at discharge. mg2 18:49 Drug: [place] 10 mg-325 mg 1 tabs Route: PO; mg2 19:05 Follow up: Response: No adverse reaction; Medication administered at discharge. mg2 Disposition: 12/05/18 18:43 Discharged to Home. Impression: Lower back pain. - Condition is Stable. - Discharge Instructions: Back Pain, Adult. - Prescriptions for Anaprox DS 550 mg Oral Tablet - take 1 tablet by ORAL route every 12 hours As needed; 20 tablet. Robaxin 500 mg Oral Tablet - take 2 tablet by ORAL route every 6 hours As needed; 40 tablet. Medrol (Lenin) 4 mg Oral Tablets, Dose Pack - take 1 tablet by ORAL route as directed - follow package instructions; 1 packet. - Medication Reconciliation Form, Thank You Letter, Antibiotic Education, Prescription Opioid Use form. - Follow up: Roem Solorio DO; When: As needed; Reason: Recheck today's complaints, Continuance of care, Re-evaluation by your physician. Follow up: Emergency Department; When: As needed; Reason: Worsening of condition. - Problem is chronic. - Symptoms have worsened. Signatures: Nadia Ravi RN RN tw2 Shahid Hurley MD MD ps1 Swapnil Cooney RN RN mg2 Corrections: (The following items were deleted from the chart) 19:06 18:43 12/05/2018 18:43 Discharged to Home. Impression: Lower back pain. Condition is mg2 Stable. Forms are Medication Reconciliation Form, Thank You Letter, Antibiotic Education, Prescription Opioid Use. Follow up: Rome Solorio; When: As needed; Reason: Recheck today's complaints, Continuance of care, Re-evaluation by your physician. Follow up: Emergency Department; When: As needed; Reason: Worsening of condition. Problem is chronic. Symptoms have worsened. ps1
--- NOTE | 2018-12-05 18:43 | ER ---
Nurse's Notes [facility] Name: Fred Mayorga Age: 73 yrs Sex: Male : 1945 Arrival Date: 12/05/2018 Time: 16:53 Bed Treatment Private MD: Rome Gordon Diagnosis: Lower back pain Presentation: 12/05 17:03 Presenting complaint: Patient states: i think i pulled something in my back 3 or 4 tw[address] gordon was out of town, now today i have gotten worse, the pain this morning has got me where i can hardly move. Transition of care: patient was not received from another setting of care. Onset of symptoms was December 05, 2018. Risk Assessment: Do you want to hurt yourself or someone else? Patient reports no desire to harm self or others. Initial Sepsis Screen: Does the patient meet any 2 criteria? No. Patient's initial sepsis screen is negative. Does the patient have a suspected source of infection? No. Patient's initial sepsis screen is negative. Care prior to arrival: None. 17:03 Method Of Arrival: Wheelchair tw2 17:03 Acuity: ADITYA 3 tw2 17:07 Note "seems like i get relief when i lay flat". tw2 Triage Assessment: 17:05 General: Appears uncomfortable, obese, unkempt, Behavior is cooperative, appropriate tw2 for age, Smells of body odor and cigarette. Pain: Complains of pain in left low back. Musculoskeletal: Range of motion: limited in low back. Historical: - Allergies: 17:07 No Known Allergies; tw2 - Home Meds: 17:07 Unknown cholesterol med [Active]; acetaminophen-codeine 300-30 mg Oral tab 1 tab every tw2 4 hours [Active]; - PMHx: 17:07 Lung Cancer; Hyperlipidemia; tw2 17:07 prostate cancer; tw2 - PSHx: 17:07 None; tw2 - Immunization history:: Adult Immunizations. - Social history:: Smoking status: Patient/guardian denies using tobacco, the patient reports quitting approximately 20 years ago. - Ebola Screening: : Patient denies travel to an Ebola-affected area in the 21 days before illness onset. Screenin:21 Abuse screen: Denies threats or abuse. Denies injuries from another. Nutritional mg2 screening: No deficits noted. Tuberculosis screening: No symptoms or risk factors identified. Fall Risk Ambulatory Aid- None/Bed Rest/Nurse Assist (0 pts). Gait- Weak (10 pts.). Assessment: 17:22 General: Appears uncomfortable, Behavior is cooperative. Pain: Complains of pain in mg2 left low back Pain does not radiate. Pain currently is 8 out of 10 on a pain scale. Quality of pain is described as aching, Pain began gradually, 3 weeks ago Is intermittent. Neuro: Level of Consciousness is awake, alert, obeys commands, Oriented to person, place, time, situation. Cardiovascular: Capillary refill < 3 seconds Patient's skin is warm and dry. Respiratory: Airway is patent Respiratory effort is even, unlabored, Respiratory pattern is regular, symmetrical. GI: No signs and/or symptoms were reported involving the gastrointestinal system. : No signs and/or symptoms were reported regarding the genitourinary system. EENT: No signs and/or symptoms were reported regarding the EENT system. Derm: Skin is intact, is healthy with good turgor, Skin is pink, warm \\T\\ dry. normal. Musculoskeletal: Reports pain in left low back since 3 weeks ago and worst today. 19:04 Reassessment: Patient appears in no apparent distress at this time. Patient and/or mg2 family updated on plan of care and expected duration. Pain level reassessed. Patient is alert, oriented x 3, equal unlabored respirations, skin warm/dry/pink. Vital Signs: 17:04 BP 150 / 86; Pulse 53; Resp 18; Temp 98(TE); Pulse Ox 94% on R/A; Weight 124.74 kg (R); tw2 Height 5 ft. 9 in. (175.26 cm); Pain 10/10; 19:04 BP 140 / 78; Pulse 55; Resp 18; Temp 98; Pulse Ox 100% on R/A; Pain 5/10; mg2 17:04 Body Mass Index 40.61 (124.74 kg, 175.26 cm) tw2 17:04 "20" tw2 ED Course: 16:53 Patient arrived in ED. mr 16:53 Rome Gordon DO is Private Physician. mr 17:04 Triage completed. tw2 17:04 Arm band placed on. tw2 17:14 Swapnil Cooney, RN is Primary Nurse. mg2 17:23 Patient has correct armband on for positive identification. mg2 17:23 No provider procedures requiring assistance completed. mg2 18:08 Shahid Hurley MD is Attending Physician. ps1 18:42 Rome Gordon DO is Referral Physician. ps1 19:04 Patient did not have IV access during this emergency room visit. mg2 Administered Medications: 18:32 Drug: TORadol 30 mg Route: IM; Site: right gluteus; mg2 19:05 Follow up: Response: No adverse reaction; Medication administered at discharge. mg2 18:49 Drug: [place] 10 mg-325 mg 1 tabs Route: PO; mg2 19:05 Follow up: Response: No adverse reaction; Medication administered at discharge. mg2 Outcome: 18:43 Discharge ordered by . ps1 19:04 Discharged to home via wheelchair, with family. mg2 19:04 Condition: stable 19:04 Discharge instructions given to patient, family, Instructed on discharge instructions, follow up and referral plans. medication usage, Demonstrated understanding of instructions, follow-up care, medications, Prescriptions given X 3. 19:06 Patient left the ED. mg2 Signatures: Batsheva Gutierrez Nadia Ravi, RN RN tw2 Shahid Hurley MD MD ps1 Swapnil Cooney, LIZ RN mg2
[2018-12-05 20:02] VITALS: TEMP 98
[2018-12-05 20:03] VITALS: BP 140/78; O2SAT 100
== END 2018-12-05 19:06 | disposition home or self-care (01) ==
LOC: ER 16:49
DX: M54.5 Low back pain (principal); E78.5 Hyperlipidemia, unspecified; Z85.118 Personal history of other malignant neoplasm of bronchus and lung; Z85.46 Personal history of malignant neoplasm of prostate
CPT/HCPCS: 96372; 99283

== ENCOUNTER 2019-01-08 10:18 | Observation (INO) | payer OTHER ==
--- OUTSIDE RECORDS SUMMARY | 2019-01-08 10:27 | XMS REPORT ---
:1945 Author Organization eClinicalWorks Care Team Providers Name Role Phone Solorio [facility] Provider Role Unavailable Allergies No Known Allergies [...]
--- OUTSIDE RECORDS SUMMARY | 2019-01-08 10:27 | XMS REPORT ---
[...] End Status Dosage System Date Date Lisinopril [facility] 46693986628 10 MG Orally Active 1 tablet Once a day Lyrica [facility] 26219637142 100 MG Orally Active 1 capsule Twice a day Ventolin HFA [facility] 10258106673 90 MCG/ACT Active 2 puffs as Inhalation needed every [address] [facility] 14159348274 10 MG Orally Active 1 tablet Once a day Simvastatin [facility] 38178641976 40 MG Orally Active 1 tablet Once a day in the evening Amitriptyline HCl ND 31525488628 10 MG Orally January 25, Active 1 tablet Once a day 2018 at bedtime [address] [facility] 06286328506 150 MG Orally Active 1 capsule twice a day Symbicort [facility] 84139249501 80-4.5 MCG/ACT Active 2 puffs Inhalation Twice a day [facility] 02294284511 81 MG Orally Active 1 tablet Once a day Results No Known Results Summary Purpose eClinicalWorks Submission
--- OUTSIDE RECORDS SUMMARY | 2019-01-08 10:27 | XMS REPORT ---
:1945 [facility] Address [address] [place] [address] [address] [place] [address] Care Team Providers Name Role Phone Unavailable Unavailable Unavailable Problems This patient has no known problems. Allergies, Adverse Reactions, Alerts This patient has no known allergies or adverse reactions. Medications This patient has no known medications.
--- OUTSIDE RECORDS SUMMARY | 2019-01-08 10:27 | XMS REPORT ---
[...] End Date Status Dosage System Date Lyrica [facility] 47391027014 100 MG Orally Active 1 capsule Twice a day Ventolin HFA [facility] 01941359022 90 MCG/ACT Active 2 puffs as Inhalation every needed 6 hrs Lisinopril [facility] 39070932927 10 MG Orally Active 1 tablet Once a day Norvasc [facility] 12307500046 10 MG Orally Active 1 tablet Once a day Symbicort [facility] 19763627242 80-4.5 MCG/ACT Active 2 puffs Inhalation Twice a day Simvastatin ND 58792224548 40 MG Orally Active 1 tablet Once a day in the evening Lyrica [facility] 55588355900 150 MG Orally January 17, Active 1 capsule twice a day 2018 Aspir-81 [facility] 16896216698 81 MG Orally Active 1 tablet Once a day Results No Known Results Summary Purpose eClinicalWorks Submission
--- OUTSIDE RECORDS SUMMARY | 2019-01-08 10:27 | XMS REPORT ---
[...] End Status Dosage System Date Date Lyrica [facility] 56840060382 150 MG Orally January 17, Inactive 1 capsule twice a day [address] [facility] 10068377025 10 MG Orally January 25, Active 1 tablet HCl Once a day 2017 at bedtime Results No Known Results Summary Purpose [facility] Submission
--- OUTSIDE RECORDS SUMMARY | 2019-01-08 10:28 | XMS REPORT ---
:1945 Author Organization eClinicalWorks Care Team Providers Name Role Phone Osmin Rome Provider Role Unavailable Allergies, Adverse Reactions, Alerts Substance Reaction Event Type N.K.D.A. 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 Problem Dyspnea R06.00 Active Problem Former smoker Z87.891 Active Problem Prostate cancer C61 Active Problem Non-small cell lung cancer (NSCLC) C34.90 Active Problem Overactive bladder N32.81 Active Problem Benign essential HTN I10 Active Problem Vitamin D deficiency E55.9 Active Problem Hyperlipidemia, mixed E78.2 Active Problem Shortness of breath R06.02 Active Assessment Vitamin D deficiency E55.9 Active Assessment Adverse effect of antineoplastic T45.1X5D Active and immunosuppressive drugs, subsequent encounter Assessment Overactive bladder N32.81 Active Assessment 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 Assessment Non-small cell lung cancer (NSCLC) C34.90 Active Assessment Hyperlipidemia, mixed E78.2 Active Assessment Prostate cancer C61 Active Assessment Benign essential HTN I10 Active Medications Medication Code Code Instructions Start End Status Dosage System Date Date Simvastatin ND 79038465465 40 MG Orally Active 1 tablet Once a day in the evening Ventolin HFA ND 04145178302 90 MCG/ACT Active 2 puffs as Inhalation needed every 6 hrs Amitriptyline HCl ND 54712657248 10 MG Orally January 25, Active 1 tablet Once a day 2017 at bedtime Oxybutynin ND 48040784661 5 MG Oral Active not Chloride ER defined - ND 00492934635 81 MG Orally Active 1 tablet Once a day Albuterol Sulfate ND 03516544152 (2.5 MG/3ML) Jul 21, Active 3 ml as 0.083% 2019 needed Inhalation Three times a day Symbicort ND 94336396111 80-4.5 MCG/ACT Jul 15, Active 2 puffs Inhalation 2020 Twice a day Results No Known Results Summary Purpose eClinicalWorks Submission
--- OUTSIDE RECORDS SUMMARY | 2019-01-08 10:28 | XMS REPORT ---
[...] Status Dosage System Date Date Amitriptyline ND 49554763666 10 MG Orally January 25, Active 1 tablet at HCl Once a day 2018 bedtime Aspir-81 ND 77951164370 81 MG Orally Active 1 tablet Once a day Ventolin HFA ND 84892774691 90 MCG/ACT Active 2 puffs as Inhalation needed every 6 hrs Symbicort ND 64089227994 80-4.5 MCG/ACT Jul 15, Active 2 puffs Inhalation 2020 Twice a day Albuterol ND 56733045939 (2.5 MG/3ML) Jul 21, Active 3 ml as Sulfate 0.083% 2018 needed Inhalation Three times a day Debrox ND 53078487448 6.5 % Otic Aug 03, Aug 09, Active 5 drops Twice a day 2018 2018 into affected ear Simvastatin ND 79874973015 40 MG Orally Active 1 tablet in Once a day the evening Results No Known Results Summary Purpose eClinicalWorks Submission
--- OUTSIDE RECORDS SUMMARY | 2019-01-08 10:28 | XMS REPORT ---
[...] End Date Status Dosage System Date Albuterol [facility] 20465828268 (2.5 MG/3ML) Jul 21, Active 3 ml as Sulfate 0.083% 2019 needed Inhalation Three times a day Results No Known Results Summary Purpose eClinicalWorks Submission
--- OUTSIDE RECORDS SUMMARY | 2019-01-08 10:28 | XMS REPORT ---
[...] End Status Dosage System Date Date Lyrica [facility] 45041624098 150 MG Orally Inactive 1 capsule twice a day Symbicort [facility] 63016183202 80-4.5 MCG/ACT Jul 15, Active 2 puffs Inhalation 2019 Twice a day Amitriptyline ND 69583735856 10 MG Orally January 25, Active 1 tablet HCl Once a day 2017 at bedtime Aspir-81 [facility] 69596776387 81 MG Orally Active 1 tablet Once a day Lisinopril ND 71747437408 10 MG Orally Inactive 1 tablet Once a day Norvasc [facility] 08593371456 10 MG Orally Inactive 1 tablet Once a day Ventolin HFA ND 31923274764 90 MCG/ACT Active 2 puffs Inhalation as needed every 6 hrs Simvastatin ND 82944439973 40 MG Orally Active 1 tablet Once a day in the evening Results No Known Results Summary Purpose eClinicalWorks Submission
--- OUTSIDE RECORDS SUMMARY | 2019-01-08 10:28 | XMS REPORT ---
[...] Active Problem Shortness of breath R06.02 Active Medications No Known Medications Results No Known Results Summary Purpose [employer] Submission
--- OUTSIDE RECORDS SUMMARY | 2019-01-08 10:28 | XMS REPORT ---
[...] Medications Results No Known Results Summary Purpose [employer] Data Submission
[2019-01-08] MEDS ORDERED: METHYLPREDNISOLONE 125 MG INJ ONE (10:54)
[2019-01-08] MEDS ORDERED: IPRATROPIUM BROM 0.5MG/2.5ML ONE (10:54)
[2019-01-08] MEDS ORDERED: LEVALBUTEROL 1.25 MG/3 ML NEB ONE (10:54)
[2019-01-08] MEDS ORDERED: ASPIRIN 81 MG CHEWABLE TABLET ONE (10:58)
[2019-01-08 11:21] LABS: Absolute Lymphocytes (CBC) 0.9 K/uL (0.7-4.9); Basophils % 0.3 % (0-1.3); Eosinophils % 0.8 % (0-4.4); Hematocrit 50.4 % (39.6-49.0); Lymphocytes % 11.1 % (15.3-44.8); MPV 9.2 fL (7.6-11.3); Monocytes % 8.6 % (3.3-12.3); RBC Red Blood Cell Count 5.61 M/uL (4.33-5.43)
[2019-01-08] MEDS ORDERED: ONDANSETRON 4 MG/2 ML VIAL ONE (11:31)
[2019-01-08] MEDS ORDERED: NA CHLORIDE 0.9% 1,000 ML ONE (11:31)
[2019-01-08 11:43] LABS: ALT/SGPT 40 U/L (12-78); AST/SGOT 25 U/L (15-37); Albumin 3.7 g/dL (3.4-5.0); Alkaline Phosphatase 80 U/L (45-117); BUN Blood Urea Nitrogen 11 mg/dL (7-18); Bicarbonate 26 mmol/L (21-32); Bilirubin Direct 0.2 mg/dL (0-0.2); Bilirubin Total 0.7 mg/dL (0.2-1.0); Glucose Level 99 mg/dL (74-106); Magnesium 2.2 mg/dL (1.8-2.4); NT PRO-BNP 120 pg/mL (<125); Potassium 4.3 mmol/L (3.5-5.1); Protein, Total 7.8 g/dL (6.4-8.2); Sodium Level 139 mmol/L (136-145); Troponin (Emerg Dept Use Only) < 0.02 ng/mL (0.0-0.045)
--- NOTE | 2019-01-08 11:54 | RAD REPORT ---
EXAM DESCRIPTION: Presley Single View01/08/2019 11:37 am CLINICAL HISTORY: cough COMPARISON: November 2017 FINDINGS: Left upper lobe atelectasis. Small to moderate left pleural effusion Right lung appears clear of acute infiltrate IMPRESSION: Left upper lobe atelectasis may be secondary to a left upper lobe mass Small to moderate left pleural effusion
[2019-01-08 12:00] LABS: Protime INR 1.08
--- NOTE | 2019-01-08 12:49 | EKG ---
Test Date: 2019-01-08 Test Time: 10:52:27 Car Painter: ARINA MEASUREMENT RESULTS: Intervals: Rate: 96 [place]: 150 QRSD: 88 QT: 336 QTc: 424 [place]: P: 64 [place]: 150 QRS: 1 T: 39 INTERPRETIVE STATEMENTS: Sinus rhythm with fusion complexes Otherwise normal ECG Compared to ECG 11/06/2017 19:57:37 Fusion complex(es) now present Electronically Signed On 01-08-19 12:47:54 CDT by Juan Luis Garcia
--- NOTE | 2019-01-08 13:11 | RAD REPORT ---
EXAM DESCRIPTION: CT - Chest For Pe Angio - 01/08/2019 12:59 pm CLINICAL HISTORY: Shortness of breath, weakness, persistent cough, history of lung cancer and prost ate cancer COMPARISON: Chest examination same date, PE study November 2017 TECHNIQUE: Dynamically enhanced 3 mm thick images of the chest were obtained during administration o f approximately 150mL Isovue 370 IV contrast. Coronal and oblique MIP reconstruction images were gene rated and reviewed. Exam utilizes a protocol to evaluate the pulmonary arterial tree. All CT scans are performed using dose optimization technique as appropriate and may include automated exposure control or mA/KV adjustment according to patient size. FINDINGS: No pulmonary emboli are identified. The aorta as imaged shows no acute or suspicious finding. No pericardial thickening or effusion. The re is questionable left ventricular hypertrophy. CT evaluation is limited. This can be correlated wit h echocardiogram as warranted. A narrow wedge-shaped area of opacification is present extending from the left hilum superiorly to th e apex along the left mediastinal border. This has an appearance typical for chronic atelectasis. The relatively linear arrangement may be the sequela of radiation therapy. Malignant mass etiology is un likely. No acute right lung field finding. Remainder of the left lung field shows no acute parenchyma l process. Moderate-size left pleural effusion is present possibly loculated. No right-sided pleural effusion. There is no pneumothorax. No mediastinal or hilar suspicious masses. No chest wall masses or abnormal axillary lymphadenopathy. IMPRESSION: No pulmonary emboli identified. Narrow wedge-shaped opacification extending from the left hilum to the left apex along the medial lef t upper lung field has the appearance of chronic atelectasis. This is the correlate to the chest film finding. The medial left upper lung field finding may be secondary to radiation therapy. This narrow or linear orientation is not typical for malignancy. Moderate left pleural effusion possibly loculated. Questionable left ventricular myocardial hypertrophy. This can be correlated with echocardiogram as w arranted.
--- NOTE | 2019-01-08 14:32 | ER ---
Nurse's Notes [facility] Name: Fred Mayorga Age: 73 yrs Sex: Male : 1945 Arrival Date: 01/08/2019 Time: 10:20 Bed 2 Private MD: Rome Solorio Diagnosis: Chronic obstructive pulmonary disease with acute lower respiratory infection;Tachypnea, not elsewhere classified Presentation: 01/08 10:24 Presenting complaint: Patient states: generalized weakness, cough, SOB that began 2 aa5 weeks ago. Transition of care: patient was not received from another setting of care. Onset of symptoms was January 2019. Risk Assessment: Do you want to hurt yourself or someone else? Patient reports no desire to harm self or others. Care prior to arrival: None. 10:24 Method Of Arrival: Wheelchair aa5 10:24 Acuity: ADITYA 3 aa5 10:45 Initial Sepsis Screen: Does the patient meet any 2 criteria? RR > 20 per min. HR > 90 sv bpm. Yes Does the patient have a suspected source of infection? Yes: Productive cough/pneumonia If YES to both, name of provider notified: Michael GRANADO Historical: - Allergies: 10:27 No Known Allergies; aa5 - Home Meds: 10:27 simvastatin 40 mg Oral tab once daily [Active]; oxybutynin chloride 5 mg oral tab daily aa5 [Active]; Symbicort inhalation inhalation [Active]; Ventolin Rotahaler/Rotacaps Inhl [Active]; - PMHx: 10:27 Hyperlipidemia; Lung Cancer; Prostate Cancer; COPD; aa5 - PSHx: 10:27 None; aa5 - Immunization history:: Pneumococcal vaccine is not up to date, Flu vaccine is not up to date. - Social history:: Smoking status: Patient/guardian denies using tobacco. - Ebola Screening: : No symptoms or risks identified at this time. Screenin:35 Abuse screen: Denies threats or abuse. Denies injuries from another. Nutritional sv screening: No deficits noted. Tuberculosis screening: No symptoms or risk factors identified. 10:45 Fall Risk None identified. sv Assessment: 10:45 General: Appears in no apparent distress. uncomfortable, well developed, Behavior is sv cooperative, appropriate for age. Pain: Denies pain. Neuro: Level of Consciousness is awake, alert, obeys commands, Oriented to person, place, time, situation, Moves all extremities. Speech is normal. Cardiovascular: Heart tones S1 S2 present Patient's skin is warm and dry. Respiratory: Reports shortness of breath cough that is productive, persistent Airway is patent Respiratory effort is even, labored, Respiratory pattern is symmetrical, tachypnea Breath sounds are diminished bilaterally. GI: Reports nausea. Derm: Skin is normal. 11:26 Reassessment: Patient appears in no apparent distress at this time. No changes from sv previously documented assessment. Patient and/or family updated on plan of care and expected duration. Pain level reassessed. Patient is alert, oriented x 3, equal unlabored respirations, skin warm/dry/pink. 12:12 Reassessment: Patient appears in no apparent distress at this time. Patient and/or sv family updated on plan of care and expected duration. Pain level reassessed. Patient is alert, oriented x 3, equal unlabored respirations, skin warm/dry/pink. Reassessment: Pt attempting to sit on the side of the bed and gets labored breathing, RR about 34. GI: Patient currently denies nausea. 13:16 Reassessment: Patient appears in no apparent distress at this time. Patient and/or sv family updated on plan of care and expected duration. Pain level reassessed. Patient is alert, oriented x 3, equal unlabored respirations, skin warm/dry/pink. GI: Patient currently denies nausea. 14:52 Reassessment: Patient appears in no apparent distress at this time. Patient and/or sv family updated on plan of care and expected duration. Pain level reassessed. Patient is alert, oriented x 3, equal unlabored respirations, skin warm/dry/pink. 15:44 Reassessment: Patient appears in no apparent distress at this time. No changes from sv previously documented assessment. Patient and/or family updated on plan of care and expected duration. Pain level reassessed. Patient is alert, oriented x 3, equal unlabored respirations, skin warm/dry/pink. 17:21 Reassessment: Patient appears in no apparent distress at this time. Patient and/or sg family updated on plan of care and expected duration. Pain level reassessed. pt family at the nurses station, reports " weven been here for about six hours now, and still no room assignment?" awaiting new orders will continue to monitor. 18:02 Reassessment: Attempted to call report, will call back. sv 18:36 Reassessment: Patient appears in no apparent distress at this time. Patient and/or sv family updated on plan of care and expected duration. Pain level reassessed. Patient is alert, oriented x 3, equal unlabored respirations, skin warm/dry/pink. Vital Signs: 10:27 BP 158 / 77; Pulse 102; Resp 24 S; Temp 99.5(O); Pulse Ox 90% on R/A; Weight 124.74 kg aa5 (R); Height 5 ft. 9 in. (175.26 cm) (R); Pain 4/10; 12:08 BP 121 / 56; Pulse 106; Resp 24; Pulse Ox 92% on 2 lpm NC; ms 13:12 Pulse 103; Resp 26; Temp 99.3; Pulse Ox 93% on 2 lpm NC; sv 14:51 BP 122 / 79; Pulse 117; Resp 28; Pulse Ox 93% on 2 lpm NC; sv 15:30 BP 125 / 83; Pulse 98; Resp 22; Pulse Ox 95% ; sv 16:30 BP 130 / 71; Pulse 100; Resp 22; Pulse Ox 92% on 2 lpm NC; sv 17:32 BP 135 / 77; Pulse 102; Resp 20; Pulse Ox 94% on 2 lpm NC; sg 18:35 BP 126 / 65; Pulse 90; Resp 22; Pulse Ox 96% on 2 lpm NC; sv 10:27 Body Mass Index 40.61 (124.74 kg, 175.26 cm) aa5 ED Course: 10:20 Patient arrived in ED. rg4 10:21 Rome Solorio DO is Private Physician. rg4 10:24 Triage completed. aa5 10:24 Arm band placed on. aa5 10:32 Michael Rodriguez PA is PHCP. cp 10:32 Santiago Trujillo MD is Attending Physician. cp 10:35 Ewelina Rodriguez, LIZ is Primary Nurse. sv 10:35 Patient has correct armband on for positive identification. Bed in low position. Call sv light in reach. Adult w/ patient. Door closed. Head of bed elevated. 10:36 Nurse Practitioner and/or Physician Intellectual Property Counsel to see patient. sv 10:50 Initial lab(s) drawn, by me, sent to lab. First set of blood cultures drawn by me. sv Inserted saline lock: 22 gauge in left forearm, using aseptic technique. ,using aseptic technique. diffusics Blood collected. Flushed left forearm with 5 ml normal saline. 11:05 Second set of blood cultures drawn by me. sv 11:09 EKG done, by sterile proc tech. reviewed by Michael GRANADO. at1 11:33 X-ray completed. Portable x-ray completed in exam room. Patient tolerated procedure sw well. 11:38 XRAY Chest (1 view) In Process Unspecified. EDMS 13:00 CT Chest For PE Angio In Process Unspecified. EDMS 14:30 Ki Todd MD is Hospitalizing Provider. cp 17:47 Awaiting bed assignment. sv 18:36 No provider procedures requiring assistance completed. Patient admitted, IV remains in sv place. intact. Administered Medications: 11:00 Drug: Xopenex (3) 1.25 mg Route: Inhalation; sv 11:26 Drug: NS 0.9% 500 ml Route: IV; Rate: 500 ml/hr; Site: left forearm; sv 12:15 Follow up: Response: No adverse reaction; IV Status: Completed infusion; IV Intake: sv 500ml 11:26 Drug: SOLU-Medrol 125 mg Route: IVP; Site: left forearm; sv 12:15 Follow up: Response: No adverse reaction sv 11:27 Drug: Zofran 4 mg Route: IVP; Site: left forearm; sv 12:12 Drug: Aspirin Chewable Tablet 324 mg Route: PO; sv 12:15 Follow up: Response: No adverse reaction sv 13:16 Drug: NS 0.9% 500 ml Route: IV; Rate: 100 ml/hr; Site: left forearm; sv 18:53 Follow up: Response: No adverse reaction; IV Status: Infusion continued upon admission sv Intake: 12:15 IV: 500ml; Total: 500ml. sv Outcome: 14:31 Decision to Hospitalize by Provider. cp 18:36 Admitted to Tele accompanied by tech, family with patient, via stretcher, room 413, sv with oxygen, with chart, Report called to Jose Miguel HILL 18:36 Condition: stable 18:36 Instructed on the need for transfer. 18:52 Patient left the ED. sv Signatures: Dispatcher [employer] Ewelina Romero RN RN Emerson Child RN RN Kinsey Newman ms, Audri, LIZ RN aa5 Gauri Aguirre, casing operator EKG Tat1 Christen Denis Corey, PA PA cp Garcia, Rubi rg4 Corrections: (The following items were deleted from the chart) 12:21 12:08 BP 156 / 79; Pulse 106bpm; Resp 24bpm; Pulse Ox 92% 2 lpm Nasal Cannula; ms ms
--- NOTE | 2019-01-08 14:32 | EDPHYS ---
Physician Documentation [facility] Name: Fred Mayorga Age: 73 yrs Sex: Male : 1945 Arrival Date: 01/08/2019 Time: 10:20 Bed 2 Private MD: Osmin [facility] ED Physician Santiago Trujillo HPI: 01/08 10:44 This 73 yrs old Male presents to ER via Wheelchair with complaints of cp Breathing Difficulty, Nausea, Weakness. 10:44 The patient has shortness of breath with light activity. Onset: The symptoms/episode cp began/occurred 2 week(s) ago, and became worse 2 day(s) ago. Duration: The symptoms are continuous, and are steadily getting worse. Associated signs and symptoms: Pertinent positives: productive cough, fever. Historical: - Allergies: 10:27 No Known Allergies; aa5 - Home Meds: 10:27 simvastatin 40 mg Oral tab once daily [Active]; oxybutynin chloride 5 mg oral tab daily aa5 [Active]; Symbicort inhalation inhalation [Active]; Ventolin Rotahaler/Rotacaps Inhl [Active]; - PMHx: 10:27 Hyperlipidemia; Lung Cancer; Prostate Cancer; COPD; aa5 - PSHx: 10:27 None; aa5 - Immunization history:: Pneumococcal vaccine is not up to date, Flu vaccine is not up to date. - Social history:: Smoking status: Patient/guardian denies using tobacco. - Ebola Screening: : No symptoms or risks identified at this time. ROS: 10:50 Constitutional: Positive for low grade fever, Negative for body aches, chills. cp 10:50 Eyes: Negative for injury, pain, redness, and discharge. cp 10:50 Cardiovascular: Negative for chest pain, palpitations. cp 10:50 ENT: Negative for drainage from ear(s), ear pain, sore throat, difficulty swallowing, cp difficulty handling secretions. 10:50 Respiratory: Positive for cough, shortness of breath, at rest. wheezing. 10:50 Abdomen/GI: Positive for nausea, Negative for abdominal pain, vomiting, diarrhea, constipation, black/tarry stool, rectal bleeding. 10:50 Back: Negative for pain at rest, pain with movement, radiated pain. 10:50 : Negative for urinary symptoms. 10:50 Skin: Negative for cellulitis, rash. 10:50 Neuro: Negative for altered mental status, dizziness, headache, weakness. 10:50 All other systems are negative. Exam: 10:57 Constitutional: The patient appears alert, awake, non-diaphoretic, non-toxic, well cp developed, well nourished, in obvious distress, mildly distressed. 10:57 Head/Face: Normocephalic, atraumatic. Eyes: Pupils equal round and reactive to light, cp extra-ocular motions intact. Lids and lashes normal. Conjunctiva and sclera are non-icteric and not injected. Cornea within normal limits. Periorbital areas with no swelling, redness, or edema. ENT: Nares patent. No nasal discharge, no septal abnormalities noted. Tympanic membranes are normal and external auditory canals are clear. Oropharynx with no redness, swelling, or masses, exudates, or evidence of obstruction, uvula midline. Mucous membranes moist. Neck: Trachea midline, no thyromegaly or masses palpated, and no cervical lymphadenopathy. Supple, full range of motion without nuchal rigidity, or vertebral point tenderness. No Meningismus. Chest/axilla: Normal chest wall appearance and motion. Nontender with no deformity. No lesions are appreciated. 10:57 Cardiovascular: Rate: tachycardic, Rhythm: regular, Edema: is not appreciated, JVD: is not appreciated. 10:57 Respiratory: mild respiratory distress is noted, Respirations: labored breathing, that is mild, Breath sounds: decreased breath sounds, that are mild, diffuse, stridor, is not appreciated, wheezing: that is mild, is heard diffusely. 10:57 Abdomen/GI: Inspection: abdomen appears normal, Bowel sounds: active, all quadrants, Palpation: abdomen is soft and non-tender, in all quadrants, rebound tenderness, is not appreciated, voluntary guarding, is not appreciated, involuntary guarding, is not appreciated. 10:57 Back: pain, is absent, ROM is normal. 10:57 Skin: no rash present. 10:57 Neuro: Orientation: to person, place \T\ time. Mentation: is normal, Motor: moves all fours, strength is normal. 11:00 ECG was reviewed by the Attending Physician. Vital Signs: 10:27 BP 158 / 77; Pulse 102; Resp 24 S; Temp 99.5(O); Pulse Ox 90% on R/A; Weight 124.74 kg aa5 (R); Height 5 ft. 9 in. (175.26 cm) (R); Pain 4/10; 12:08 BP 121 / 56; Pulse 106; Resp 24; Pulse Ox 92% on 2 lpm NC; ms 13:12 Pulse 103; Resp 26; Temp 99.3; Pulse Ox 93% on 2 lpm NC; sv 14:51 BP 122 / 79; Pulse 117; Resp 28; Pulse Ox 93% on 2 lpm NC; sv 15:30 BP 125 / 83; Pulse 98; Resp 22; Pulse Ox 95% ; sv 16:30 BP 130 / 71; Pulse 100; Resp 22; Pulse Ox 92% on 2 lpm NC; sv 17:32 BP 135 / 77; Pulse 102; Resp 20; Pulse Ox 94% on 2 lpm NC; sg 18:35 BP 126 / 65; Pulse 90; Resp 22; Pulse Ox 96% on 2 lpm NC; sv 10:27 Body Mass Index 40.61 (124.74 kg, 175.26 cm) aa5 MDM: 10:38 Patient medically screened. cp 13:30 Data reviewed: vital signs, nurses notes, lab test result(s), EKG, radiologic studies, cp CT scan. 13:30 Test interpretation: by ED physician or midlevel provider: ECG, plain radiologic cp studies. 01/08 10:42 Order name: Basic Metabolic Panel; Complete Time: 12:25 cp 01/08 12:26 Interpretation: Normal except: GFR 63. cp 01/08 10:42 Order name: CBC with Diff; Complete Time: 12:25 cp 01/08 12:26 Interpretation: Normal except: RBC 5.61; HCT 50.4; PLT 140; RD% 79.2; LYM% 11.1. cp 01/08 10:42 Order name: LFT's; Complete Time: 12:25 cp 01/08 10:42 Order name: Magnesium; Complete Time: 12:25 cp 01/08 10:42 Order name: NT PRO-BNP; Complete Time: 12:25 cp 01/08 10:42 Order name: PT-INR; Complete Time: 12:25 cp 01/08 10:42 Order name: Troponin (emerg Dept Use Only); Complete Time: 12:25 cp 01/08 10:42 Order name: XRAY Chest (1 view); Complete Time: 12:25 cp 01/08 10:42 Order name: Procalcitonin; Complete Time: 12:25 cp 01/08 10:42 Order name: Lactate; Complete Time: 12:25 cp 01/08 10:42 Order name: Blood Culture Adult (2) cp 01/08 10:42 Order name: Influenza Screen (a \T\ B); Complete Time: 12:25 cp 01/08 12:29 Order name: CT Chest For PE Angio; Complete Time: 13:22 cp 01/08 10:42 Order name: EKG; Complete Time: 10:53 cp 01/08 10:42 Order name: Cardiac monitoring; Complete Time: 11:06 cp 01/08 10:42 Order name: EKG - Nurse/Tech; Complete Time: 11: cp 01/08 10:42 Order name: IV Saline Lock; Complete Time: 11:20 cp 01/08 10:42 Order name: Labs collected and sent; Complete Time: 11:20 cp 01/08 10:42 Order name: O2 Per Protocol; Complete Time: 11: cp 01/08 10:42 Order name: O2 Sat Monitoring; Complete Time: 11:06 cp EC:00 Rate is 96 beats/min. Rhythm is regular. TX interval is normal. QRS interval is normal. cp QT interval is normal. Interpreted by me. Reviewed by me. Administered Medications: 11:00 Drug: Xopenex (3) 1.25 mg Route: Inhalation; sv 11:26 Drug: NS 0.9% 500 ml Route: IV; Rate: 500 ml/hr; Site: left forearm; sv 12:15 Follow up: Response: No adverse reaction; IV Status: Completed infusion; IV Intake: sv 500ml 11:26 Drug: SOLU-Medrol 125 mg Route: IVP; Site: left forearm; sv 12:15 Follow up: Response: No adverse reaction sv 11:27 Drug: Zofran 4 mg Route: IVP; Site: left forearm; sv 12:12 Drug: Aspirin Chewable Tablet 324 mg Route: PO; sv 12:15 Follow up: Response: No adverse reaction sv 13:16 Drug: NS 0.9% 500 ml Route: IV; Rate: 100 ml/hr; Site: left forearm; sv 18:53 Follow up: Response: No adverse reaction; IV Status: Infusion continued upon admission sv Disposition: 19:22 Co-signature as Attending Physician, Santiago Trujillo MD. Disposition: 01/08/19 14:31 Hospitalization ordered by Ki Todd for Observation. Preliminary diagnosis are Chronic obstructive pulmonary disease with acute lower respiratory infection, Tachypnea, not elsewhere classified. - Bed requested for Telemetry/MedSurg (observation). - Status is Observation. sv - Condition is Stable. - Problem is new. - Symptoms have improved. UTI on Admission? No Signatures: Dispatcher [employer] EDMS Ewelina Rodriguez RN RN sv Aniket Haile em1 Chelita Partida RN RN aa5 Michael Rodriguez PA PA Santiago Russo MD MD Corrections: (The following items were deleted from the chart) 17:48 14:31 Hospitalization Ordered by Ki Todd MD for Observation. Preliminary diagnosis em1 is Chronic obstructive pulmonary disease with acute lower respiratory infection; Tachypnea, not elsewhere classified. Bed requested for Telemetry/MedSurg (observation). Status is Observation. Condition is Stable. Problem is new. Symptoms have improved. UTI on Admission? No. cp 18:52 17:48 01/08/2019 14:31 Hospitalization Ordered by Ki Todd MD for Observation. sv Preliminary diagnosis is Chronic obstructive pulmonary disease with acute lower respiratory infection; Tachypnea, not elsewhere classified. Bed requested for Telemetry/MedSurg (observation). Status is Observation. Condition is Stable. Problem is new. Symptoms have improved. UTI on Admission? No. em1
[2019-01-08] MEDS ORDERED: ACETAMINOPHEN 500 MG TAB PO PRN (20:04)
[2019-01-08] MEDS ORDERED: ONDANSETRON 4 MG/2 ML VIAL IV PRN (20:04)
[2019-01-08] MEDS: IPRATROPIUM BROM 0.5MG/2.5ML NEB SCH (20:45)
[2019-01-08] MEDS: ALBUTEROL 2.5 MG/3 ML NEB SOL NEB SCH (20:45)
[2019-01-08] MEDS: METHYLPREDNISOLONE 40 MG INJ IV SCH (22:16)
[2019-01-09] MEDS: ALBUTEROL 2.5 MG/3 ML NEB SOL NEB SCH ×3 (00:20→09:15)
[2019-01-09] MEDS: IPRATROPIUM BROM 0.5MG/2.5ML NEB SCH ×3 (00:20→09:15)
--- NOTE | 2019-01-09 00:49 | HP ---
Date of Admission: 01/08/2019 Code Status: Do not intubate. Primary Care Physician: Dr. Solorio. Chief Complaint: Shortness of breath. History Of Present Illness: The patient is a 73-year-old male with past medical history of lung canc er on the left, now with recent diagnoses of prostate cancer and hyperlipidemia, who was in his usual state of health until day prior to admission when the patient suddenly started developing shortness of breath. The patient reports allergy type symptoms with cough, clear sputum production, increased shortness of breath. The patient's daughter was ill with upper respiratory tract infection to which he was exposed. The patient otherwise denies any fevers, chills, nausea, vomiting, or chest pain. T he patient's symptoms are constant, moderate, progressively worsening. The patient came into the ER for further evaluation. His initial workup revealed mild hypoxia. The patient was 90% on room air. He was placed on 2 L via nasal cannula, improved to 93%. He was tachypneic and tachycardic. Had te mperature of 99.5. The patient's workup revealed normal WBC count. Lactate level and procalcitonin level were negative. Imaging studies including the CT scan were negative for pulmonary embolism. Di d show wedge shaped opacification on the left apex along the medial left upper lung having the appear ance of chronic atelectasis, also had moderate left pleural effusion, possibly loculated. The patien t was given breathing treatment, which did not improve his condition significantly. Therefore, was r eferred for admission. When seen in the ER, he was awake, alert, oriented x3, in some mild respirato ry distress, tachypneic, tachycardic. Past Medical History: History of lung cancer, left-sided, status post treatment at [facility], ellen ently in remission; prostate cancer; hyperlipidemia; hypertension. Past Surgical History: None. Allergies: NO KNOWN DRUG ALLERGIES. Medications: List reviewed. Family History: Father also of respiratory disease. Social History: The patient denies any tobacco use, alcohol use, or illicit drug use. Patient is ma rried, independent in his activities of daily living. Review of Systems: Ten-point system reviewed, negative except as per HPI. Physical Examination: Vital Signs: Blood pressure 158/77, pulse 102, respirations 24, temperature 99.5, O2 90% on room air . BMI 40.6. HEENT: Normocephalic, atraumatic. PERRLA. EOMI. Moist mucous membranes. Oropharynx is clear. Po or dentition. Conjunctivae anicteric. General: Awake, alert, oriented x3. Elderly male, obese, in mild respiratory distress. Neck: Supple. No JVD. Trachea midline. CV: S1, S2. Sinus tachycardia. Peripheral pulses present. Respiratory: Diminished breath sounds, worse on the left. Minimal wheezing heard. No stridor or us e of accessory muscles. The patient is tachypneic. Gastrointestinal: Abdomen is soft, nontender, nondistended. Positive bowel sounds. The patient has umbilical hernia which is reducible. Extremities: No clubbing or cyanosis. The patient does have pedal edema. No calf tenderness. Neuro: Cranial nerves 2 through 12 intact grossly. No focal neurological deficit. Speech is normal . Skin: No rashes. Normal skin turgor. Psych: Mood is okay. Affect is full. Insight and judgment are good. Laboratory Data: Sodium 139, potassium 4.3, chloride 106, CO2 26, BUN 11, creatinine 1.13, glucose 9 9, lactate 1.2, calcium 9.1, magnesium 2.2. Troponin, less than 0.02. Albumin 3.7. Procalcitonin, less than 0.05. INR 1.08. WBC 7.9, H and H 16.8/50.4, platelets 140, neutrophils 79%. Influenza sc reen is negative. Blood cultures pending. Imaging Studies: CT scan of the chest shows no PE, narrow wedge shaped opacification from the left h ilum to the left apex along the medial left upper lung field, has the appearance of chronic atelectas is. Medial left upper lung field finding, may be secondary to radiation therapy. Moderate left pleu ral effusion, possibly loculated. Questionable left ventricular hypertrophy. Chest x-ray shows left upper lobe atelectasis, may be secondary to left upper lobe mass; small to moderate left pleural eff usion. EKG shows sinus rhythm with fusion complexes, otherwise normal EKG, rate of 96. Assessment And Plan: A 73-year-old male with 1.Acute exacerbation of chronic obstructive pulmonary disease. We will continue on breathing treatm ents. Continue steroids. We will consult Pulmonology. 2.Left pleural effusion, possibly loculated. The patient may need drainage versus thoracotomy. No acute signs of infection. White blood cell count is normal. Lactate and procalcitonin are negative. We will discuss further with Pulmonology. 3.History of lung cancer, currently in remission, left lung. Follows with Oncology at [facility]. 4.Recent history of prostate cancer. 5.Hypertension. Continue home medications as appropriate. 6.Hyperlipidemia, mixed. We will continue with statin. 7.Obesity, body mass index greater than 35. Plan: Admit patient to Med-Surg, [facility] as observation. MOHINDER Voice ID: [id number]
[2019-01-09] MEDS: METHYLPREDNISOLONE 40 MG INJ IV SCH ×2 (03:59→08:37)
[2019-01-09 04:03] VITALS: BMI 39.5
[2019-01-09 05:00] LABS: Absolute Lymphocytes (CBC) 0.8 K/uL (0.7-4.9); Basophils % 0.1 % (0-1.3); Hematocrit 46.6 % (39.6-49.0); Lymphocytes % 8.8 % (15.3-44.8); MPV 8.6 fL (7.6-11.3); Monocytes % 2.7 % (3.3-12.3); RBC Red Blood Cell Count 5.15 M/uL (4.33-5.43)
[2019-01-09 05:13] LABS: Potassium 4.1 mmol/L (3.5-5.1)
[2019-01-09 05:16] LABS: Blood Morphology Comment NOT SEEN (NOT SEEN); Platelet Estimate ADEQ; Urine White Blood Cell Casts OK
[2019-01-09 05:17] LABS: Urine Appearance CLEAR; Urine Bilirubin NEGATIVE (NEG); Urine Blood NEGATIVE (NEG); Urine Color YELLOW; Urine Glucose 1+ (NEG); Urine Protein NEGATIVE (NEG); Urine Specific Gravity >=1.030 (1.005-1.030); Urine Urobilinogen 0.2 mg/dL (0.2-1.0)
[2019-01-09 05:18] LABS: Urine Microscopic Reflex NO UMIC
[2019-01-09 05:41] VITALS: O2SAT 96
[2019-01-09 12:05] VITALS: BP 113/49; TEMP 99.1
[2019-01-09] MEDS ORDERED: ATORVASTATIN 20 MG TAB PO SCH (21:00)
--- NOTE | 2019-01-10 02:16 | DS ---
Date of Discharge: 01/09/2019 Consultants: Dr. Montes. Discharge Diagnoses: 1.Acute COPD exacerbation. 2.Left pleural effusion, likely loculated, chronic. 3.History of lung cancer, currently in remission of the left lung. 4.History of prostate cancer. 5.Essential hypertension, stable. 6.Mixed hyperlipidemia, on statin. 7.Obesity, BMI 39.6. Hospital Course: The patient is a 73-year-old male with history of left-sided lung cancer, currently in remission, has chronic pleural effusion, comes in with shortness of breath. The patient was thou t to have COPD exacerbation. He was started on supplemental oxygen. He improved. The patient was given breathing treatments and steroids. The patient's CT scan was done, which was negative for PE, however, did show changes consistent with chronic atelectasis in the left lung, also left pleural ef fusion which is possibly loculated. 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 Montes was unable to complete his consultation. The patient refused e ssentially. The patient felt better. He was able to be weaned off oxygen. He was able to ambulate without getting significantly dyspneic. He was back to his baseline status of shortness of breath. His lactate and procal were negative. There were no signs of acute infection. He did not have any f kimberly, chills. There was no sepsis. The patient was then cleared for discharge and was sent home. He has multiple appointments at [facility] including colonoscopy and appointment with Urology for hi s prostate cancer. The patient was discharged home in a stable condition. Activity: As tolerated. Diet: Heart-healthy, calorie-restricted diet. Followup: Follow up with primary care physician in 2-3 days. Return to ER for worsening condition. Follow up with specialist at [facility] as scheduled. Medications: As per medication reconciliation list. Physical Examination: General: Awake, alert, oriented x3. Elderly male, obese. CV: S1, S2. Respiratory: Diminished breath sounds on the left base, otherwise, moving air well. Gastrointestinal: Abdomen is soft, nontender, nondistended. Positive bowel sounds. Extremities: No clubbing, cyanosis, edema. Neuro: Nonfocal. SA/MODL Voice ID: [id number] Report ID: [id number]
[2019-01-10] MEDS ORDERED: HOME MED 1 EA UNK (Budesonide/Formoterol Fumarate [Symbicort 160-4.5 Mcg Inhaler] 1 PUFF) IH SCH (09:00)
[2019-01-10] MEDS ORDERED: OXYBUTYNIN ER 5 MG TAB PO SCH (09:00)
== END 2019-01-09 14:18 | disposition home or self-care (01) ==
LOC: ER 10:18 → ERHOLD 14:10 → 4TH 18:37
PROVIDERS: ADMIT Family Medicine; ATTEND Family Medicine
DX: J44.1 Chronic obstructive pulmonary disease with (acute) exacerbation (principal); J90 Pleural effusion, not elsewhere classified; C61 Malignant neoplasm of prostate; E78.5 Hyperlipidemia, unspecified; R09.02 Hypoxemia; I10 Essential (primary) hypertension; Z85.118 Personal history of other malignant neoplasm of bronchus and lung; E66.9 Obesity, unspecified; Z68.39 Body mass index [BMI] 39.0-39.9, adult
CPT/HCPCS: 96361; 93005; 87040 ×2; 85025 ×2; 80048 ×2; 36415; 83735; 85610; 80076; 83605; 81003; 84484; 84145; 83880; 87804 ×2; 71275; 71045; 94640; 96375; 96374; 99285; Q9967; J7030; J2930; J2405; J2920 ×3; G0378 ×2

== ENCOUNTER 2019-03-26 07:34 | Day surgery (SDC) | payer OTHER ==
[2019-03-23 12:40] LABS: Absolute Lymphocytes (CBC) 1.2 K/uL (0.7-4.9); Basophils % 0.6 % (0-1.3); Lymphocytes % 19.7 % (15.3-44.8); MPV 8.7 fL (7.6-11.3); RBC Red Blood Cell Count 4.94 M/uL (4.33-5.43)
[2019-03-23 12:54] LABS: Potassium 4.2 mmol/L (3.5-5.1)
--- NOTE | 2019-03-23 13:20 | RAD REPORT ---
EXAM DESCRIPTION: RAD - Chest Pa And Lat (2 Views) - 03/23/2019 12:57 pm CLINICAL HISTORY: Preop, patient pending periumbilical hernia surgery COMPARISON: CT chest January 08, 2019, portable chest January 08, 2019 TECHNIQUE: PA and lateral views of the chest were obtained. FINDINGS: The lungs are normal volume on the right with chronic pleural effusion at the left base. L eft hilar elevation and opacification also stable. Heart size is normal and central vasculature is within normal limits. No pleural effusion or pneumothorax seen. No acute bony finding noted. No ao rtic abnormality. IMPRESSION: No acute cardiopulmonary process. Left-sided pleural the fusion and perihilar parenchymal opacities are stable back to January 2019.
--- OUTSIDE RECORDS SUMMARY | 2019-03-26 07:36 | XMS REPORT | Summary of Care ---
:1945 Author Organization [facility] - Health Address [address] [place] [address] Care Team Providers Name Role Phone Rome Solorio Primary Care Provider Encounter Details Date Type Department Care Team Description 01/31/2019 Orders Only [facility] Doctor Unassigned, No [address] [facility] [place] [address] [address] [place] [address] Allergies No Known Allergiesdocumented as of this encounter (statuses as of 02/07/2019) Medications Medication Sig Dispensed Refills Start Date End Date Status simvastatin 40 mg Take 40 mg by 0 05/20/2017 Active tablet mouth daily. budesonide-formoterol Inhale. 0 Active 160-4.5 mcg/actuation inhaler albuterol 90 Inhale 1 Puff. 0 Active mcg/actuation inhaler oxybutynin XL 5 mg 24 Take by mouth. 0 08/19/2018 Active hr tablet predniSONE 10 mg Take 40 mg po qd 23 tablet 0 01/16/2019 Active tabletIndications: COPD x 3d, then 20 mg with acute exacerbation x 3d then 10 mg x 3d then 5 mg x 3d ipratropium-albuterol Inhale 3 mL every 1 Box 5 01/16/2019 Active 0.5 mg-3 mg(2.5 mg 4 (four) hours. base)/3 mL nebulizer solutionIndications: COPD with acute exacerbation documented as of this encounter (statuses as of 02/07/2019) Active Problems Problem Noted Date Troponin level elevated 01/11/2019 COPD with acute exacerbation 01/11/2019 documented as of this encounter (statuses as of 02/07/2019) Immunizations Name Administration Dates Next Due Influenza Virus Vaccine - Whole 05/18/2018 Pneumococcal Polysaccharide, PPSV23 (PNEUMOVAX) 05/18/2018 documented as of this encounter Social History Tobacco Use Types Packs/Day Years Used Date Former Smoker Cigarettes 2 50 Quit: 2002 Smokeless Tobacco: Former User Chew Alcohol Use Drinks/Week oz/Week Comments Not Currently Sex Assigned at Date Recorded Not on file Job Start Date Occupation Industry Not on file Not on file Not on file Travel History Travel Start Travel End No recent travel history available. documented as of this encounter Last Filed Vital Signs Not on filedocumented in this encounter Plan of Treatment Date Type Specialty Care Team Description 02/22/2019 Office Visit Pulmonary Disease Jose Juan Mart, [address] [place] [address] 03/12/2019 Laboratory Only Cardiology Visit, Adc Nurse Tech, [facility] Cardio Fac 1, [facility] Cardio Fac Room Health Maintenance Due Date Last Done Comments DTaP,Tdap,and Td Vaccines (1 - Tdap) 02/16/1963 COLONOSCOPY 02/16/1994 Zoster Recombinant Vaccine (SHINGRIX) (1 of 2) 02/16/1994 Medicare Wellness Visit 02/16/2009 INFLUENZA VACCINE 03/04/2019 05/18/2018 PNEUMOCOCCAL VACCINES 65+ (2 of 2 - PCV13) 05/18/2019 05/18/2018 documented as of this encounter Procedures Procedure Name Priority Date/Time Associated Diagnosis Comments AUTHORIZATION FOR RELEASE Routine 01/31/2019 12:01 AM OF [facility] CDT documented in this encounter Results Not on filedocumented in this encounter Insurance Payer Benefit Plan / Subscriber ID Effective Dates Phone Address Type Group MEDICARE MEDICARE PART xxxxxxxxxxx 2009-John [phone] [address] Medicare A & B t [id number] [place] [id number] documented as of this encounter
--- OUTSIDE RECORDS SUMMARY | 2019-03-26 07:36 | XMS REPORT ---
:1945 [facility] Address [address] [place] [address] Dr. Morales [address] [place] [address] Care Team Providers Name Role Phone Unavailable Unavailable Unavailable Problems This patient has no known problems. Allergies, Adverse Reactions, Alerts This patient has no known allergies or adverse reactions. Medications This patient has no known medications.
--- OUTSIDE RECORDS SUMMARY | 2019-03-26 07:36 | XMS REPORT | Summary of Care ---
:1945 Author Organization [facility] Address [address] [place] [address] Care Team Providers Name Role Phone Rome Solorio Primary Care Provider Reason for Visit Reason Comments Follow-up COPD Results Diagnostic SS Encounter Details Date Type Department Care Team Description 02/22/2019 Office Visit [facility] ADC Jose Juan Mart DO Stage 3 severe COPD by GOLD classification (Primary Dx); Pulmonary Clinic [address] [facility] PATRICK (obstructive sleep apnea) [address] [place] [address] , [facility] [address] [place] [phone] Allergies No Known Allergiesdocumented as of this encounter (statuses as of 02/22/2019) Medications Medication Sig Dispensed Refills Start Date [...] as of this encounter (statuses as of 02/22/2019) Active Problems Problem Noted Date Troponin level elevated 01/11/2019 COPD with acute exacerbation 01/11/2019 documented as of this encounter (statuses as of 02/22/2019) Immunizations Name Administration Dates Next Due Influenza [...] of this encounter Last Filed Vital Signs Vital Sign Reading Time Taken Comments Blood Pressure 131/78 02/22/2019 1:08 PM CDT Pulse 62 02/22/2019 1:07 PM CDT Temperature - - Respiratory Rate 19 02/22/2019 1:07 PM CDT Oxygen Saturation 95% 02/22/2019 1:07 PM CDT Inhaled Oxygen Concentration - - Weight 125.6 kg (276 lb 12.8 oz) 02/22/2019 1:07 PM CDT Height 172.7 cm (5' 8") 02/22/2019 1:07 PM CDT Body Mass Index 42.09 02/22/2019 1:07 PM CDT documented in this encounter Progress Notes Jose Juan Mart DO - 02/22/2019 1:00 PM CDT [facility] Chief Complaint: Follow up of COPD History of Present Illness: Fred Mayorga is a 73 year old male with hx of COPD and lung cancer s/p treatment at [facility]. Since last visit, doing well, using oxygen at night. Had sleep study done which showed mild sleep apnea. Breathing is improved, still has shortness of breath with normal exertion, improved with rest. Past Medical History: has a past medical history of Cancer, COPD (chronic obstructive pulmonary disease), and Hyperlipidemia. Past Surgical History: has no past surgical history on file. Family History: Not contributory to chief complaint Social History: reports that he quit smoking about 16 years ago. His smoking use included cigarettes. He has a 100.00 pack-year smoking history. He has quit using smokeless tobacco. His smokeless tobacco use included chew. He reports that he drank alcohol. He reports that he has current or past drug history. Review of Systems: General: (-) fever, (-) chills, (-) weight loss, (-) weight gain, (-) fatigue, ( -) malaise Skin: (-) rash, (-) lesion HEENT: (-) headache, (-) change in hearing, (-) change in vision, (-) nasal discharge, (-) sore throat Neck: (-) pain, (-) difficulty swallowing Heme: (-) bleeding disorder Resp: (+) cough, (+) dyspnea on exertion Cardio: (-) chest pain, (-) palpitations, (-) syncope GI: (-) abdominal pain, (-) nausea, (-) vomiting, (-) diarrhea, (-) constipation , (-) melena, (-) hematochezia, (-) hematemesis : (-) dysuria, (-) hematuria Endo: (-) heat intolerance, (-) cold intolerance Neuro: (-) numbness, (-) tingling, (-) weakness Back: (-)spasms AISSATOU: (-) muscle pain, (-) joint pain, (-) claudication Psych: (-) anxiety, (-) depression Objective: BP 131/78 | Pulse 62 | Resp 19 | Ht 5' 8" (1.727 m) | Wt 276 lb 12.8 oz ( 125.6 kg) | SpO2 95% | BMI 42.09 kg/m General: Alert, in no acute distress Psych: Oriented to person, place, time, and situation Head: Normocephalic, atraumatic Eyes: Conjunctiva clear, extraocular motion intact Mouth: Mucus membranes moist Neck: Supple, trachea midline, no masses Heart: Regular rate and rhythm, no murmurs, rubs, or gallops Lungs: Clear to auscultation bilaterally Abdomen: Soft, non-distended, non-tender to palpation, no masses or organomegaly Ext: No lower extremity edema Msk: No clubbing noted Neuro: Normal gait, no focal deficits noted Lymph: No cervical or supraclavicular lymphadenopathy Labs/Studies: From MD Stanley: FEV1 40% predicted Sleep study - mild sleep apnea Assessment: ICD-10-CM ICD-9-CM 1. Stage 3 severe COPD by GOLD classification J44.9 496 2. PATRICK (obstructive sleep apnea) G47.33 327.23 Plan: 1. Continue with Symbicort and Albuterol PRN 2. Will order auto PAP 5 - 15 cm H20 3. Follow up 8 weeks documented in this encounter Plan of Treatment Date Type Specialty Care Team Description 03/12/2019 Laboratory Only Cardiology Visit, Adc Nurse Tech, Adc Cardio Fac 1, Adc Cardio Fac Room 04/20/2019 Office Visit Pulmonary Disease Jose Juan Mart DO [address] [place] [address] Health Maintenance Due Date Last Done Comments DTaP,Tdap,and Td Vaccines (1 - Tdap) 02/16/1963 COLONOSCOPY 02/16/1994 Zoster Recombinant Vaccine (SHINGRIX) (1 of 2) 02/16/1994 Medicare Wellness Visit 02/16/2009 INFLUENZA VACCINE (#1) 2019 05/18/2018 PNEUMOCOCCAL VACCINES 65+ (2 of 2 - PCV13) 05/18/2019 05/18/2018 documented as of this encounter Results Not on filedocumented in this encounter Visit Diagnoses Diagnosis Stage 3 severe COPD by GOLD classification - Primary PATRICK (obstructive sleep apnea) Obstructive sleep apnea (adult) (pediatric) documented in this encounter Insurance Payer Benefit Plan / Subscriber ID Effective Dates Phone Address Type Group MEDICARE MEDICARE PART xxxxxxxxxxx 2009-John [phone] [address] Medicare A & B t [id number] [place] [id number] documented as of this encounter
--- OUTSIDE RECORDS SUMMARY | 2019-03-26 07:36 | XMS REPORT | Summary of Care ---
:1945 Author Organization [facility] Address [address] [place] [address] Care Team Providers Name Role Phone Rome Solorio Primary Care Provider Reason for Visit Reason Comments Follow-up COPD Results Diagnostic SS Encounter Details Date Type Department Care Team Description 02/22/2019 Office Visit [facility] ADC Jose Juan Mart DO Stage 3 severe COPD by GOLD classification (Primary Dx); Pulmonary Clinic [address] [facility] PATRICK (obstructive sleep apnea) [address] [place] [address] , [facility] [address] [place] [phone] Allergies No Known Allergiesdocumented [...] Mart DO - 02/22/2019 1:00 PM CDT [facility] Pul[facility] Chief Complaint: Follow up [...] Visit Pulmonary Disease Jose Juan Mart DO [address] [place] [address] Health Maintenance Due Date Last [...] [address]OX Medicare A & B t 2 [id number] [place] [id number] documented as of this encounter
--- OUTSIDE RECORDS SUMMARY | 2019-03-26 07:37 | XMS REPORT | Summary of Care ---
:1945 Author Organization [facility] Address [address] [place] [address] Care Team Providers Name Role Phone Osmin Rome Varghese Primary Care Provider Reason for Visit Reason Comments Orders Encounter Details Date Type Department Care Team Description 03/01/2019 Telephone [facility] Pulmonary Jose Juan Mart, DO Orders Clinic [address] , [address] [place] [phone] Allergies No Known Allergiesdocumented as of this encounter (statuses as of 03/02/2019) Medications Medication Sig Dispensed Refills Start Date [...] as of this encounter (statuses as of 03/02/2019) Active Problems Problem Noted Date Troponin level elevated 01/11/2019 COPD with acute exacerbation 01/11/2019 documented as of this encounter (statuses as of 03/02/2019) Immunizations Name Administration Dates Next Due Influenza [...] 04/20/2019 Office Visit Pulmonary Disease Jose Juan Mart, [address] [place] [address] Health Maintenance Due Date Last [...] Type Group MEDICARE MEDICARE PART xxxxxxxxxxx 2009-John [phone] [address] Medicare A & B t [id number] [place] [id number] documented as of this encounter
--- OUTSIDE RECORDS SUMMARY | 2019-03-26 07:37 | XMS REPORT | Summary of Care ---
:1945 Author Organization [facility] - Health Address [address] [place] [address] Care Team Providers Name Role Phone Rome Solorio Primary Care Provider Encounter Details Date Type Department Care Team Description 02/22/2019 Orders Only [facility] Doctor Unassigned, No [address] [facility] [place] [address] [address] [place] [address] Allergies No Known Allergiesdocumented as of this encounter (statuses as of 02/26/2019) Medications Medication Sig Dispensed Refills Start Date [...] as of this encounter (statuses as of 02/26/2019) Active Problems Problem Noted Date Troponin level elevated 01/11/2019 COPD with acute exacerbation 01/11/2019 documented as of this encounter (statuses as of 02/26/2019) Immunizations Name Administration Dates Next Due Influenza [...] Office Visit Pulmonary Disease Jose Juan Mart, [address] [place] [address] Health Maintenance Due Date Last Done Comments DTaP,Tdap,and Td Vaccines (1 - Tdap) 02/16/1963 COLONOSCOPY 02/16/1994 Zoster Recombinant Vaccine (SHINGRIX) (1 of 2) 02/16/1994 Medicare Wellness Visit 02/16/2009 INFLUENZA VACCINE (#1) 2019 05/18/2018 PNEUMOCOCCAL VACCINES 65+ (2 of 2 - PCV13) 05/18/2019 05/18/2018 documented as of this encounter Procedures Procedure Name Priority Date/Time Associated Diagnosis Comments DME/SUPPLY JUSTIFICATION Routine 02/22/2019 12:01 AM CDT documented in this encounter Results Not on filedocumented in this encounter Insurance Payer Benefit Plan / Subscriber ID Effective Dates Phone Address Type Group MEDICARE MEDICARE PART xxxxxxxxxxx 2009-John [phone] [address] Medicare A & B t [id number] [place] [id number] documented as of this encounter
--- OUTSIDE RECORDS SUMMARY | 2019-03-26 07:37 | XMS REPORT | Summary of Care ---
:1945 Author Organization [facility] Address [address] [place] [address] Care Team Providers Name Role Phone Osmin Rome Varghese Primary Care Provider Reason for Visit Reason Comments Orders Encounter Details Date Type Department Care Team Description 03/01/2019 Telephone [facility] Pulmonary Jose Juan Mart, DO Orders Clinic [address] , [address] [place] [phone] Allergies No Known Allergiesdocumented as of this [...] Office Visit Pulmonary Disease Jose Juan Mart, [address] [place] [address] Health Maintenance Due Date Last [...] Type Group MEDICARE MEDICARE PART xxxxxxxxxxx 2009-John [phone] [address] Medicare A & B t 2 [id number] [place] [id number] documented as of this encounter
--- OUTSIDE RECORDS SUMMARY | 2019-03-26 07:37 | XMS REPORT | Summary of Care ---
:1945 Author Organization [facility] - [facility] Address [address] [place] [address] Care Team Providers Name Role Phone Rome Solorio Primary Care Provider Reason for Referral (Routine) Status Reason Specialty Diagnoses / Procedures Referred By Contact Referred To Contact Closed Cardiology Diagnoses Troponin I above reference range DAVALOS (dyspnea on exertion) Liliana Fan MD Procedures DOBUTAMINE STRESS ECHO Preferred Location: [address] [place] [address] Reason for Visit (Routine) Status Reason Specialty Diagnoses / Procedures Referred By Contact Referred To Contact Closed Cardiology Diagnoses Troponin I above reference range DAVALOS (dyspnea on exertion) Liliana Fan MD Procedures DOBUTAMINE STRESS ECHO Preferred Location: [address] [place] [address] Encounter Details Date Type Department Care Team Description 03/12/2019 Laboratory Only [facility] Health Nigel Larson MD [address] [place] [address] Troponin I above reference range; Cardiology- [place] Visit, [facility] Nurse DAVALOS (dyspnea on exertion) [address] [facility] [address], [address], [facility] [place] [address] Allergies No Known Allergiesdocumented as of this encounter (statuses as of 03/12/2019) Medications Medication Sig Dispensed Refills Start Date [...] mL nebulizer solutionIndications: COPD with acute exacerbation Hospital, Clinic, Ordered Dose Route Frequency Start Date End Date Status or Other Facility Administered Medication NaCl 0.9% (NS) IV 250 mL IV Infusion CONTINUOUS 03/12/2019 Discontinued infusion 250 9 mLIndications: Troponin I above reference range, DAVALOS (dyspnea on exertion) DOBUTamine 626 mcg/min IV TITRATE 03/12/2019 Discontinued (DOBUTREX) 500 mg 9 in 250mL(Fixed Dose) D5W infusionIndication s: Troponin I above reference range, DAVALOS (dyspnea on exertion) atropine injection 1 mg SIVP ONCE 03/12/2019 Discontinued 1 mgIndications: 9 Troponin I above reference range, DAVALOS (dyspnea on exertion) metoprolol 5 mg SIVP ONCE 03/12/2019 Ended (LOPRESSOR) 9 injection 5 mgIndications: Troponin I above reference range, DAVALOS (dyspnea on exertion) sulfur 5 mL SIVP ONCE 03/12/2019 Ended hexafluoride 9 microsphr (LUMASON) injection 5 mLIndications: Troponin I above reference range, DAVALOS (dyspnea on exertion) documented as of this encounter (statuses as of 03/12/2019) Active Problems Problem Noted Date Troponin level elevated 01/11/2019 COPD with acute exacerbation 01/11/2019 documented as of this encounter (statuses as of 03/12/2019) Immunizations Name Administration Dates Next Due Influenza [...] Sign Reading Time Taken Comments Blood Pressure 162/79 03/12/2019 11:39 AM CDT Pulse - - Temperature - - Respiratory Rate - - Oxygen Saturation - - Inhaled Oxygen Concentration - - Weight 125.2 kg (276 lb) 03/12/2019 10:06 AM CDT Height 172.7 cm (5' 8") 03/12/2019 10:06 AM CDT Body Mass Index 41.97 03/12/2019 10:06 AM CDT documented in this encounter Patient Instructions InstructionsElizabeth Aguilar RN - 03/12/2019 Discharge Instructions: Diet: You may resume your normal diet. Activity: You may resume your normal physical activity including driving and return to work. Medications: You may resume all medications that you were instructed to stop for this test. Site Care: No special instructions. It is possible that a small amount of blood may ooze from the IV site for afew hours following the procedure. In this event, a small bandage may be used over the site. Any blood oozing should stop within a few hours after the IV has been discontinued. You may notice slight bruising or tenderness at the site, which should go away within two to three days. If you notice any swelling, increased soreness or tenderness, redness, red streaks radiating from the IV site, and/or a feeling of warmth or heat around the IV site, notify your physician, as this could indicate infection. Office Visit: Your test results will be provided to your physician. Depending on the results of your test, your physician may want you to schedule a visit within a certain period of time in order to discuss treatment options, additional testing/ diagnostic options, and/or to follow up on your status. Warning Signs/Symptoms to Monitor You should report any chest pain or discomfort, shortness of breath, dizziness or nausea to your physician. If these symptoms are severe and/or persistent, you should call [phone]. If you continue to feel tired or weak for more than a day after the procedure, call your physician immediately. [facility] Cardiology office: [phone] documented in this encounter Plan of Treatment Date Type Specialty Care Team Description 04/20/2019 Office Visit Pulmonary Disease Jose Juan Mart DO [address] [place] [address] Name Type Priority Associated Diagnoses Order Schedule Oxygen Saturation PROCEDURES Routine Troponin I above CONTINUOUS until reference range discontinued starting DAVALOS (dyspnea on 03/12/2019 exertion) EKG-12 LEAD ROUTINE HEART STATION Routine Troponin I above CONTINUOUS until reference range discontinued starting DAVALOS (dyspnea on 03/12/2019 exertion) Health Maintenance Due Date Last Done Comments DTaP,Tdap,and Td Vaccines (1 - Tdap) 02/16/1963 COLONOSCOPY 02/16/1994 Zoster Recombinant Vaccine (SHINGRIX) (1 of 2) 02/16/1994 Medicare Wellness Visit 02/16/2009 INFLUENZA VACCINE (#1) 2019 05/18/2018 PNEUMOCOCCAL VACCINES 65+ (2 of 2 - PCV13) 05/18/2019 05/18/2018 documented as of this encounter Results Not on filedocumented in this encounter Visit Diagnoses Diagnosis Troponin I above reference range Other abnormal blood chemistry DAVALOS (dyspnea on exertion) Other dyspnea and respiratory abnormality documented in this encounter Administered Medications Medication Order MAR Action Action Date Dose Rate Site DOBUTamine (DOBUTREX) Rate Change 03/12/2019 11:27 30 mcg/kg/min 112.68 mL/ hr 500 mg in 250mL(Fixed AM CDT Dose) D5W infusion at 18.78 mL/hr, 5 mcg/kg/min 125.2 kg (18.78 mL/hr), Intravenous, TITRATE, Starting 03/12/19 at 1007, Until Tue03/12/19 at 1139, Routine Rate Change 03/12/2019 11:24 AM CDT 20 mcg/kg/min 75.12 mL/hr Rate Change 03/12/2019 11:21 AM CDT 10 mcg/kg/min 37.56 mL/hr metoprolol (LOPRESSOR) injection 5 mg Given 03/12/2019 11:29 AM CDT 2.5 mg 5 mg, Slow IV Push, ONCE, 1 dose, 03/12/19 at 1115, Routine NaCl 0.9% (NS) IV infusion 250 mL New Bag 03/12/2019 10:47 AM CDT 250 mL 50 mL/hr at 50 mL/hr, IV Infusion, CONTINUOUS, Starting 03/12/19 at 1115, Until Tue03/12/19 at 1139, Routine, To keep vein open, sulfur hexafluoride microsphr (LUMASON) Given 03/12/2019 11:14 AM CDT 5 mL injection 5 mL 5 mL, Slow IV Push, ONCE, 1 dose, 03/12/19 at 1115, Routine documented in this encounter Insurance Payer Benefit Plan / Subscriber ID Effective Dates Phone Address Type Group MEDICARE MEDICARE PART xxxxxxxxxxx 2009-John [phone] [address] Medicare [address] & B t [id number] [place] [id number] documented as of this encounter
--- OUTSIDE RECORDS SUMMARY | 2019-03-26 07:37 | XMS REPORT | Summary of Care ---
:1945 Author Organization [facility] - [facility] Address [address] [place] [address] Care Team Providers Name Role Phone Rome Solorio Primary Care Provider Reason for Referral (Routine) Status Reason Specialty Diagnoses / Procedures Referred By Contact Referred To Contact Closed Cardiology Diagnoses Troponin I above reference range DAVALOS (dyspnea on exertion) Liliana Fan MD Procedures DOBUTAMINE STRESS ECHO Preferred Location: [address] [place] [address] Reason for Visit (Routine) Status Reason Specialty Diagnoses / Procedures Referred By Contact Referred To Contact Closed Cardiology Diagnoses Troponin I above reference range DAVALOS (dyspnea on exertion) Liliana Fan MD Procedures DOBUTAMINE STRESS ECHO Preferred Location: [address] [place] [address] Encounter Details Date Type Department Care Team Description 03/12/2019 Laboratory Only [facility] Health Nigel Larson MD [address] [place] [address] Troponin I above reference range; Cardiology- [place] Visit, [facility] Nurse DAVALOS (dyspnea on exertion) [address] [facility] [address], [facility] [place] [address] Allergies No Known Allergiesdocumented as [...] after the procedure, call your physician immediately. [facility] Cardiology office: [phone] documented in this encounter Plan of Treatment Date Type Specialty Care Team Description 04/20/2019 Office Visit Pulmonary Disease Jose Juan Mart DO [address] [place] [address] Name Type Priority Associated Diagnoses [...] BOX Medicare A & B t 2 [id number] [place] [id number] documented as of this encounter
--- OUTSIDE RECORDS SUMMARY | 2019-03-26 07:37 | XMS REPORT | Summary of Care ---
:1945 Author Organization [facility] Address [address] [place] [address] Care Team Providers Name Role Phone Rome Solorio Primary Care Provider Reason for Visit Reason Comments Follow-up COPD Results Diagnostic SS Encounter Details Date Type Department Care Team Description 02/22/2019 Office Visit [facility] Jose Juan Mart DO Stage 3 severe COPD by GOLD classification (Primary Dx); Pulmonary Clinic [address] [place] [address] PATRICK (obstructive sleep apnea); [address] [place] [address] [facility] Chronic respiratory failure, unspecified whether with hypoxia or hypercapnia [address] [place] [address] Allergies No Known Allergiesdocumented as of this encounter (statuses as of 03/01/2019) Medications Medication Sig Dispensed Refills Start Date [...] as of this encounter (statuses as of 03/01/2019) Active Problems Problem Noted Date Troponin level elevated 01/11/2019 COPD with acute exacerbation 01/11/2019 documented as of this encounter (statuses as of 03/01/2019) Immunizations Name Administration Dates Next Due Influenza [...] Mart DO - 02/22/2019 1:00 PM CDT [facility] Chief Complaint: Follow up [...] 2. PATRICK (obstructive sleep apnea) G47.33 327.23 3. Chronic respiratory failure, unspecified whether with hypoxia or hypercapnia J96.10 518.83 Has chronic respiratory failure secondary to COPD Plan: 1. Continue with Symbicort and Albuterol PRN 2. Will order auto PAP 5 - 15 cm H20 3. Follow up 8 weeks Addendum: given combination of severe COPD with chronic respiratory failure as well as PATRICK will treat with NIPPV. Patient has had significant respiratory symptom burden despite standard treatment with COPD medications including significant shortness of breath with even normal exertion. documented in this encounter Plan of Treatment Date Type Specialty Care Team Description 03/12/2019 Laboratory Only Cardiology Visit, [facility] Nurse Tech, [facility] Card[facility] [address] 1, [facility] Cardio Fac Room 04/20/2019 Office Visit Pulmonary Disease Jose Juan Mart DO [address] [place] [address] Health Maintenance Due Date Last [...] sleep apnea) Obstructive sleep apnea (adult) (pediatric) Chronic respiratory failure, unspecified whether with hypoxia or hypercapnia documented in this encounter Insurance Payer Benefit Plan / Subscriber ID Effective Dates Phone Address Type Group MEDICARE MEDICARE PART xxxxxxxxxxx 2009-John [phone] [address] Medicare A & B t [id number] [place] [id number] documented as of this encounter
--- OUTSIDE RECORDS SUMMARY | 2019-03-26 07:37 | XMS REPORT | Summary of Care ---
:1945 Author Organization [facility] Address [address] [place] [address] Care Team Providers Name Role Phone Osmin Rome Varghese Primary Care Provider Reason for Visit Reason Comments Orders Encounter Details Date Type Department Care Team Description 03/01/2019 Telephone [facility] Pulmonary Jose Juan Mart, DO Orders Clinic [address] , [address] [place] [phone] Allergies No Known Allergiesdocumented as of this [...] Office Visit Pulmonary Disease Jose Juan Mart, [address] [place] [address] Health Maintenance Due Date Last [...] Type Group MEDICARE MEDICARE PART xxxxxxxxxxx 2009-John [phone] [address] Medicare A & B t 2 [id number] [place] [id number] documented as of this encounter
--- OUTSIDE RECORDS SUMMARY | 2019-03-26 07:37 | XMS REPORT | Summary of Care ---
:1945 Author Organization [facility] Health Address [address] [place] [address] Care Team Providers Name Role Phone Rome Solorio Primary Care Provider Encounter Details Date Type Department Care Team Description 03/12/2019 Orders Only [facility] Doctor Unassigned, No [address] [facility] [place] [address] [address] [place] [address] Allergies No Known Allergiesdocumented as of this [...] Office Visit Pulmonary Disease Jose Juan Mart, [address] [place] [address] Health Maintenance Due Date Last Done Comments DTaP,Tdap,and Td Vaccines (1 - Tdap) 02/16/1963 COLONOSCOPY 02/16/1994 Zoster Recombinant Vaccine (SHINGRIX) (1 of 2) 02/16/1994 Medicare Wellness Visit 02/16/2009 INFLUENZA VACCINE (#1) 2019 05/18/2018 PNEUMOCOCCAL VACCINES 65+ (2 of 2 - PCV13) 05/18/2019 05/18/2018 documented as of this encounter Procedures Procedure Name Priority Date/Time Associated Diagnosis Comments NOTICE OF BILLING Routine 03/12/2019 9:59 AM CDT [facility] FOR MEDICARE PATIENTS documented in this encounter Results Not on filedocumented in this encounter Insurance Payer Benefit Plan / Subscriber ID Effective Dates Phone Address Type Group MEDICARE MEDICARE PART xxxxxxxxxxx 2009-John [phone] [address] Medicare A & B t 2 [id number] [place] [id number] documented as of this encounter
--- OUTSIDE RECORDS SUMMARY | 2019-03-26 07:38 | XMS REPORT | Summary of Care ---
:1945 Author Organization [facility] Address [address] [place] [address] Care Team Providers Name Role Phone Chong Soloriofariba Varghese Primary Care Provider Reason for Visit Reason Comments Results Encounter Details Date Type Department Care Team Description 03/20/2019 Telephone [facility] Cardiology- Liliana Fan MD Results [place] [address] [facility] [address] [facility], [address] [place] [address] [place] [phone] Allergies No Known Allergiesdocumented as of this encounter (statuses as of 03/20/2019) Medications Medication Sig Dispensed Refills Start Date [...] as of this encounter (statuses as of 03/20/2019) Active Problems Problem Noted Date Troponin level elevated 01/11/2019 COPD with acute exacerbation 01/11/2019 documented as of this encounter (statuses as of 03/20/2019) Immunizations Name Administration Dates Next Due Influenza [...] Visit Pulmonary Disease Jose Juan Mart DO [address] [place] [address] Health Maintenance Due Date Last Done [...] BOX Medicare A & B t 2 [id number] [place] [phone] documented as of this encounter
--- OUTSIDE RECORDS SUMMARY | 2019-03-26 07:38 | XMS REPORT | Summary of Care ---
:1945 Author Organization [facility] Address [address] [place] [address] Care Team Providers Name Role Phone Osmin Rome Varghese Primary Care Provider Reason for Visit Reason Comments Orders Encounter Details Date Type Department Care Team Description 03/12/2019 Telephone [facility] Jose Juan Mart, DO Orders Clinic [address] , [address] [place] [phone] Allergies No Known Allergiesdocumented as of this [...] Visit Pulmonary Disease Jose Juan Mart DO [address] [place] [address] Health Maintenance Due Date Last [...] BOX Medicare A & B t 2 [id number] [place] [phone] documented as of this encounter
--- OUTSIDE RECORDS SUMMARY | 2019-03-26 07:38 | XMS REPORT | Summary of Care ---
:1945 Author Organization [facility] Address [address] [place] [address] Care Team Providers Name Role Phone Osmin Rome Varghese Primary Care Provider Reason for Visit Reason Comments Orders Encounter Details Date Type Department Care Team Description 03/12/2019 Telephone [facility] Pulmonary Jose Juan Mart, DO Orders Clinic [address] , [address] [place] [phone] Allergies No Known Allergiesdocumented as of this encounter (statuses as of 03/16/2019) Medications Medication Sig Dispensed Refills Start Date [...] as of this encounter (statuses as of 03/16/2019) Active Problems Problem Noted Date Troponin level elevated 01/11/2019 COPD with acute exacerbation 01/11/2019 documented as of this encounter (statuses as of 03/16/2019) Immunizations Name Administration Dates Next Due Influenza [...] Visit Pulmonary Disease Jose Juan Mart DO [address] [place] [address] Health Maintenance Due Date Last [...] BOX Medicare A & B t 2 [id number] [place] [phone] documented as of this encounter
--- OUTSIDE RECORDS SUMMARY | 2019-03-26 07:38 | XMS REPORT ---
:1945 Author Organization [employer] Care Team Providers Name Role Phone Rome Solorio Provider Role Unavailable Allergies, Adverse Reactions, Alerts Substance Reaction Event Type N.K.D.A. 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 Problem Overactive bladder N32.81 Active Problem Prostate cancer C61 Active Problem On home oxygen therapy Z99.81 Active Problem Shortness of breath R06.02 Active Problem Benign essential HTN I10 Active Problem Hyperlipidemia, mixed E78.2 Active Problem Non-small cell lung cancer (NSCLC) C34.90 Active Medications Medication Code Code Instructions Start End Status Dosage System Date Date Sulfamethoxazol [facility] 28777577090 800-160 MG Mar 22Mar Active 1 tablet e-Trimethoprim Orally Twice a 2019 day 2019 Albuterol ND 72526702749 (2.5 MG/3ML) Jul 21, Active 3 ml as Sulfate 0.083% 2019 needed Inhalation Three times a day Aspir-81 [facility] 75870165712 81 MG Orally Active 1 tablet Once a day Oxybutynin [facility] 12288327667 5 MG Oral Active not Chloride ER defined Symbicort ND 31875856294 80-4.5 MCG/ACT Jul 15, Active 2 puffs Inhalation Twice 2020 a day Ventolin HFA ND 75439474705 90 MCG/ACT Active 2 puffs as Inhalation every needed 6 hrs Ipratropium-Alb ND 61452926654 0.5-2.5 (3) Active 3 ml uterol MG/3ML Inhalation every 6 hrs Simvastatin ND 71154756351 40 MG Orally Active 1 tablet Once a day in the evening Results No Known Results Summary Purpose [employer] Submission
--- OUTSIDE RECORDS SUMMARY | 2019-03-26 07:38 | XMS REPORT | Summary of Care ---
:1945 Author Organization [facility] - [facility] Address [address] [place] [address] Care Team Providers Name Role Phone Rome Solorio Primary Care Provider Reason for Referral (Routine) Status Reason Specialty Diagnoses / Procedures Referred By Contact Referred To Contact Closed Cardiology Diagnoses Troponin I above reference range DAVALOS (dyspnea on exertion) Liliana Fan MD Procedures DOBUTAMINE STRESS ECHO Preferred Location: [address] [place] [address] Reason for Visit (Routine) Status Reason Specialty Diagnoses / Procedures Referred By Contact Referred To Contact Closed Cardiology Diagnoses Troponin I above reference range DAVALOS (dyspnea on exertion) Liliana Fan MD Procedures DOBUTAMINE STRESS ECHO Preferred Location: [address] [place] [address] Encounter Details Date Type Department Care Team Description 03/12/2019 Laboratory Only [facility] Health Nigel Larson MD [address] [place] [address] Troponin I above reference range; Cardiology- [place] Visit, [facility] Nurse DAVALOS (dyspnea on exertion) [address] [facility] [address], [facility] [place] [address] Allergies No Known Allergiesdocumented as of this encounter (statuses as of 03/19/2019) Medications Medication Sig Dispensed Refills Start Date [...] as of this encounter (statuses as of 03/19/2019) Active Problems Problem Noted Date Troponin level elevated 01/11/2019 COPD with acute exacerbation 01/11/2019 documented as of this encounter (statuses as of 03/19/2019) Immunizations Name Administration Dates Next Due Influenza [...] after the procedure, call your physician immediately. [facility] Cardiology office: [phone] documented in this encounter Plan of Treatment Date Type Specialty Care Team Description 04/20/2019 Office Visit Pulmonary Disease Jose Juan Mart DO [address] [place] [address] Health Maintenance Due Date Last Done Comments DTaP,Tdap,and Td Vaccines (1 - Tdap) 02/16/1963 COLONOSCOPY 02/16/1994 Zoster Recombinant Vaccine (SHINGRIX) (1 of 2) 02/16/1994 Medicare Wellness Visit 02/16/2009 INFLUENZA VACCINE (#1) 2019 05/18/2018 PNEUMOCOCCAL VACCINES 65+ (2 of 2 - PCV13) 05/18/2019 05/18/2018 documented as of this encounter Procedures Procedure Name Priority Date/Time Associated Comments Diagnosis DOBUTAMINE STRESS Routine 03/12/2019 10:12 AM Troponin I above Results for this ECHO CDT reference range procedure are in DAVALOS (dyspnea on the results exertion) section. documented in this encounter Results DOBUTAMINE STRESS ECHO Preferred Location: [place] [facility] (03/12/2019 10: 12 AM CDT) Specimen Performing Organization Address City/State/Zipcode Phone Number ECHO documented in this encounter Visit Diagnoses Diagnosis Troponin [...] mL, Slow IV Push, ONCE, 1 dose, Tue03/12/19 at 1115, Routine documented in this encounter Insurance Payer Benefit Plan / Subscriber ID Effective Dates Phone Address Type Group MEDICARE MEDICARE PART xxxxxxxxxxx 2009-John [phone] [address] [facility] Medicare A & B t 2 [id number] [place] [id number] documented as of this encounter
[2019-03-26] MEDS ORDERED: Ringers Lactate 1,000 ML IV ONE (07:47)
[2019-03-26] MEDS: CEFOXITIN/SWI 1gm 1 GM/10 ML SYR ONE ×3 (08:01→08:40)
[2019-03-26] MEDS ORDERED: MIDAZOLAM HCL 2 MG/2 ML INJ ONE (08:16)
[2019-03-26] MEDS ORDERED: LIDOCAINE 1% MPF 5 ML VIAL ONE (08:16)
[2019-03-26] MEDS ORDERED: PROPOFOL 200 MG/20 ML VIAL IV ONE (08:16)
[2019-03-26] MEDS ORDERED: FENTANYL CITR 100 MCG/2 ML ONE (08:16)
[2019-03-26] MEDS ORDERED: ALBUTEROL 2.5 MG/3 ML NEB SOL ONE ×2 (08:23→09:20)
[2019-03-26] MEDS ORDERED: ROCURONIUM 50 MG/5 ML VIAL IV ONE (08:30)
[2019-03-26] MEDS ORDERED: KETOROLAC 30 MG/ML INJ ONE (08:50)
[2019-03-26] MEDS ORDERED: GLYCOPYRROLATE 0.2 MG/ML SYR ONE (08:51)
[2019-03-26] MEDS ORDERED: ONDANSETRON 4 MG/2 ML VIAL ONE (08:51)
[2019-03-26] MEDS ORDERED: NEOSTIGMINE 1 MG/ML -10 ML VIAL ONE (08:56)
[2019-03-26] MEDS ORDERED: LIDOCAINE 2% MPF 5 ML VIAL ONE (09:05)
--- NOTE | 2019-03-26 09:13 | P.BOP ---
Preoperative diagnosis: incarcerated umbilical hernia with necrotic ulcerated skin, cellulitis Postoperative diagnosis: same Primary procedure: 1. Repair of incarcerated umbilical hernia Secondary procedure: 2. partial omentectomy Estimated blood loss: <10cc Specimen: hernia sac Findings: incarcerated omentum. ulcerated ischemic skin with cellultis Anesthesia: General Complications: None Transferred to: Recovery Room Condition: Good
[2019-03-26] MEDS ORDERED: CODEINE 30MG/APAP 300MG TAB ONE (10:34)
[2019-03-26 11:17] VITALS: TEMP 97.4
[2019-03-26 11:19] VITALS: BP 123/67
[2019-03-26 12:19] VITALS: O2SAT 92
--- NOTE | 2019-03-26 20:38 | OP ---
Date of Procedure: 03/26/2019 Surgeon: Jose Miguel Haile MD Preoperative Diagnoses: Incarcerated umbilical hernia with necrotic ulcerated skin, cellulitis, and morbid obesity. Postoperative Diagnoses: Incarcerated umbilical hernia with necrotic ulcerated skin, cellulitis, and morbid obesity. Procedures: 1.Repair of incarcerated umbilical hernia. 2.Partial omentectomy. Specimens: Hernia sac and omentum. Findings: Incarcerated omentum. Ulcerated skin with cellulitis over the hernia. Anesthesia: General plus local. Indications: This is a case of a 74-year-old patient who comes to us with an umbilical hernia. The skin is all distended, ulcerated, ischemic from pressure due to the large amount of omentum that went to that hernia and got incarcerated. Patient was already antibiotics. He was explained the importa nce of fixing this since there is an ulceration on the skin. The benefits and risks of repair of inc arcerated umbilical hernia were fully explained to the patient, which include, but are not limited to infection, bleeding, damage to adjacent structures, anesthesia complication, recurrence, IL, and devorah n . He also understands this may not relieve any symptoms, he might need more than one surgical intervention. He understand the importance of losing weight. Obviously, the patient wants the area to be closed if possible, although he may end up needing wound care. He signed a consent. The area of concern was marked by me and the patient in the holding room. Description Of Procedure: Patient was brought to the operating room, placed in supine position. Ane sthesia was done without complication. Abdominal area was prepped and draped in a sterile fashion. Local anesthesia was applied. His skin was so distended and excess skin, so we had to remove half of that skin. Thus, the skin had also the ulceration present, ischemia. Thus, the skin was removed th at led us into the subcutaneous tissue. We opened the hernia sac and noticed incarcerated omentum ca n now be reduced so between Linn clamps we proceeded to sequentially remove the omentum. This was d one several times until the omentum incarcerated was removed. We tied that with 3-0 chromic. Slowly after inspection, we did use the part of the omentum that was tied making sure there was no bleeding . We did that once again sequentially. Once we had that and hernia sac removed, then we were able t o see the skin edges. We were able to approximate these skin edges with #1 Prolene interrupted figur [id number]-of-eight multiple times. This was after irrigation and suction and hemostasis was obtained. The a светлана was irrigated. Then, we proceeded to close this and since the patient had some extra skin and no w we have a potential for seroma, we proceeded to put stitches inside to secure the dermis to the und erlying tissue to diminish the space in that area, then the skin in a subcuticular fashion, then stap le, and then placed over there some cotton balls. We always kept hemostasis in check. The skin was left behind, does not look ischemic at this moment, although it is still erythematosus, so we are goi ng to cover him with some antibiotics. Irrigation was done profusely. A sterile dressing was placed over the area. Patient tolerated the procedure well. Patient was sent to recovery in stable condit ion. Disposition: Home. Activity: As tolerated. No heavy lifting. Followup: Follow up in my office in 1 week. Call for appointment [phone]. Keep area dry for 48 ho urs, then may shower, then replace cotton ball with Bactroban over the incision line. ANN/AVELINA Voice ID: [id number] Report ID: [id number]
== END 2019-03-26 12:08 | disposition home or self-care (01) ==
LOC: OR 07:34
PROVIDERS: ATTEND Surgery
PROC: 0WQF0ZZ Repair Abdominal Wall, Open Approach (ICD-10-PCS; principal; 2019-03-26 08:30)
DX: K42.0 Umbilical hernia with obstruction, without gangrene (principal); I96 Gangrene, not elsewhere classified; L03.311 Cellulitis of abdominal wall; J44.9 Chronic obstructive pulmonary disease, unspecified; E78.00 Pure hypercholesterolemia, unspecified; E66.01 Morbid (severe) obesity due to excess calories; Z68.41 Body mass index [BMI] 40.0-44.9, adult; Z99.81 Dependence on supplemental oxygen; Z85.118 Personal history of other malignant neoplasm of bronchus and lung; Z85.46 Personal history of malignant neoplasm of prostate; Z87.891 Personal history of nicotine dependence; Z80.1 Family history of malignant neoplasm of trachea, bronchus and lung; Z80.0 Family history of malignant neoplasm of digestive organs
CPT/HCPCS: 85025; 80048; 36415; 88302; 88305; 71046; 49587; J2704; J2710; J3010; J2405; J2250